=== PATIENT | male | born 1990 ===

== ENCOUNTER 2016-11-16 18:11 | Emergency (ER) | payer BC, MEDICAID, OTHER ==
[2016-11-16 18:11] VITALS: BMI 28.3
[2016-11-16 18:53] VITALS: BP 130/77; PULSE 70; RESP 18; TEMP 98.1; O2SAT 100
[2016-11-16] MEDS ORDERED: cefTRIAXone (Rocephin) 250 mg Inj IM ONE (19:28)
--- NOTE | 2016-11-16 19:30 | ED PDOC ---
HPI: Male Pain Time Seen by Provider: 11/16/16 19:11 Chief Complaint (Nursing): Male Genitourinary Chief Complaint (Provider): Penile Bleeding History Per: Patient History/Exam Limitations: no limitations Onset/Duration Of Symptoms: Days (x2) Current Symptoms Are (Timing): Intermittent Episodes (only when having sex) Quality Of Discomfort: Burning Associated Symptoms: denies: Fever, Diarrhea, Back Pain, Urinary Symptoms (no hematuria), Other (no abdominal pain, testicular pain, scrotal pain, rectal bleeding) Additional Complaint(s): Levi Da Silva is a 26 year old male, with no pertinent past medical history, who presents to the ED on 11/16/16 for the evaluation of penile bleeding that he has experienced x2 days, present upon his engaging in sexual intercourse. Patient further characterizes bleeding a mild, stating that it only beads around the head of his penis. He has also noted some excoriated skin in this area, though he denies fever, abdominal pain, back pain, diarrhea, bleeding per rectum, hematuria, testicular or scrotal pain. Of note, patient is currently sexually active (unprotected) with 1 partner, of whose STD status he is unsure. PMD: unable to remember name Past Medical History Reviewed: Historical Data, Nursing Documentation, Vital Signs Vital Signs: Last Vital Signs Temp 98.1 F 11/16/16 18:51 Pulse 70 11/16/16 18:51 Resp 18 11/16/16 18:51 BP 130/77 11/16/16 18:51 Pulse Ox 100 11/16/16 18:51 - Medical History PMH: Anxiety, Asthma, Depression, Seizures Denies: Diabetes, Hepatitis, HIV, HTN, Chronic Kidney Disease, Sexually Transmitted Disease - Family History Family History: States: Unknown Family Hx - Social History Current smoker - smoking cessation education provided: Yes (Occasionally) Alcohol: Other (yes) Drugs: Other (yes) - Immunization History Hx Tetanus Toxoid Vaccination: Yes Hx Influenza Vaccination: No Hx Pneumococcal Vaccination: No - Home Medications Home Medications: Ambulatory Orders Medication Instructions Recorded Bupropion HCl [Wellbutrin] mg PO 12/28/15 Topiramate [Topamax] mg PO 12/28/15 clonazePAM [clonAZEPAM] mg PO 12/28/15 Cephalexin [cephalexin] 500 mg PO BID #20 cap 05/14/16 - Allergies Allergies/Adverse Reactions: Allergies Allergy/AdvReac Type Severity Reaction Status Date / Time No Known Allergies Allergy Verified 11/30/15 23:07 Review of Systems Constitutional: Negative for: Fever Gastrointestinal: Negative for: Vomiting, Diarrhea, Hematochezia, Rectal Pain Genitourinary Male: Positive for: Other (Penile Bleeding). Negative for: Hematuria, Scrotal Pain Physical Exam - Reviewed Nursing Documentation Reviewed: Yes Vital Signs Reviewed: Yes - Physical Exam Appears: Positive for: Non-toxic, No Acute Distress Cardiovascular/Chest: Positive for: Regular Rate, Rhythm Respiratory: Negative for: Respiratory Distress Gastrointestinal/Abdominal: Positive for: Normal Exam, Soft. Negative for: Tenderness Male Genital Exam: Positive for: normal genitalia, other (Pt refused group therapy counselor for exam. ). Negative for: bleeding, lesions, urethral discharge Neurologic/Psych: Positive for: Alert, Oriented - ECG O2 Sat by Pulse Oximetry: 100 (ra) Pulse Ox Interpretation: Normal Medical Decision Making Medical Decision Makin:11 Initial impression: nonspecific uretritis; most likely STD initial plan: * U Dip * Chlamydia/ GC RNA * Rocephin 250mg IM * Zithromax 1000mg PO * Re-eval Scribe Attestation: Documented by Ana Trevino, acting as a scribe for Robby Hudson MD. Provider Scribe Attestation: All medical record entries made by the Scribe were at my direction and personally dictated by me. I have reviewed the chart and agree that the record accurately reflects my personal performance of the history, physical exam, medical decision making, and the department course for this patient. I have also personally directed, reviewed, and agree with the discharge instructions and disposition. Disposition - Clinical Impression Clinical Impression: Urethritis, STD (male) - Patient ED Disposition Is Patient to be Admitted: No Doctor Will See Patient In The: Office Counseled Patient/Family Regarding: Studies Performed, Diagnosis, Need For Followup - Disposition Referrals: [facility] [Outside] Disposition: Routine/Home Disposition Time: 20:50 Condition: GOOD Additional Instructions: You received treatment for possible STD. You will be called with positive results in 2 days. Follow up with your PCP in 1 week. Instructions: Nonspecific Urethritis in Men (ED), Sexually Transmitted Diseases (ED)
[2016-11-16] MEDS ORDERED: cefTRIAXone (Rocephin) 250 mg Inj ONE (20:29)
[2016-11-16] MEDS ORDERED: Sterile Water 10 ML IV ONE (20:30)
== END 2016-11-16 21:00 | disposition home or self-care (01) ==
LOC: H.ER 18:11
DX: N34.2 Other urethritis (principal); A64 Unspecified sexually transmitted disease; F41.9 Anxiety disorder, unspecified

== ENCOUNTER 2017-05-06 22:24 | Emergency (ER) | payer BC, MEDICAID, OTHER ==
[2017-05-06 22:25] VITALS: BMI 28.3
[2017-05-06 22:33] VITALS: BP 141/72; PULSE 95; RESP 16; TEMP 99; O2SAT 99
--- NOTE | 2017-05-06 22:48 | ED PDOC ---
Upper Extremity Pain/Injury Time Seen by Provider: 05/06/17 22:30 Chief Complaint (Nursing): Abnormal Skin Integrity Chief Complaint (Provider): skin lesions History Per: Patient History/Exam Limitations: no limitations Additional Complaint(s): 26yo M in ED for eval of lesions to right forearm and right dorsum of foot-x 3d without fever, drainage, chills body aches. Past Medical History Reviewed: Historical Data, Nursing Documentation, Vital Signs Vital Signs: Last Vital Signs Temp 99 F 05/06/17 22:29 Pulse 95 H 05/06/17 22:29 Resp 16 05/06/17 22:29 BP 141/72 05/06/17 22:29 Pulse Ox 99 05/06/17 22:29 - Medical History PMH: Anxiety, Asthma, Depression, Seizures Denies: Diabetes, Hepatitis, HIV, HTN, Chronic Kidney Disease, Sexually Transmitted Disease - Family History Family History: States: Unknown Family Hx - Immunization History Hx Tetanus Toxoid Vaccination: Yes Hx Influenza Vaccination: No Hx Pneumococcal Vaccination: No - Home Medications Home Medications: Ambulatory Orders Medication Instructions Recorded Bupropion HCl [Wellbutrin] mg PO 12/28/15 Topiramate [Topamax] mg PO 12/28/15 clonazePAM [clonAZEPAM] mg PO 12/28/15 Cephalexin [cephalexin] 500 mg PO BID #20 cap 05/14/16 Cephalexin [cephalexin] 500 mg PO BID #20 cap 05/06/17 Clindamycin [Cleocin] 300 mg PO TID #30 cap 05/06/17 - Allergies Allergies/Adverse Reactions: Allergies Allergy/AdvReac Type Severity Reaction Status Date / Time No Known Allergies Allergy Verified 05/06/17 22:29 Review of Systems ROS Statement: Except As Marked, All Systems Reviewed And Found Negative Skin: Positive for: Lesions Physical Exam - Reviewed Nursing Documentation Reviewed: Yes Vital Signs Reviewed: Yes - Physical Exam Appears: Positive for: Well, Non-toxic, No Acute Distress Skin: Positive for: Normal Color, Warm, Rash (lesion-right antecubital lesion with surronding erythema without tenderness no swelling to arm. right dorsum of foot: 4th digit with lesion and surronding swelling and reddness with mild tenderness and streaking. ) Cardiovascular/Chest: Positive for: Regular Rate, Rhythm Respiratory: Positive for: CNT, Normal Breath Sounds Neurologic/Psych: Positive for: Alert, Oriented - ECG O2 Sat by Pulse Oximetry: 99 - Progress ED Course And Treament: PT will get IV clindamycin 600mg in ED and cbc/xray. Medical Decision Making Medical Decision Making: xray shows mild soft tissue swelling clindamycin-600mg IV and d/c with clindamycin 300mg TID and keflex BID f/u in 3d with pmd or return to ED if worsen stable VS and well appearing. advised to apply warm compress area. Disposition - Clinical Impression Clinical Impression: Cellulitis of arm, Cellulitis and abscess of foot - Patient ED Disposition Is Patient to be Admitted: No Counseled Patient/Family Regarding: Studies Performed, Diagnosis, Need For Followup, Rx Given - Disposition Referrals: [facility] [Outside] Disposition: Routine/Home Disposition Time: 23:30 Condition: STABLE Prescriptions: Cephalexin [cephalexin] 500 mg PO BID #20 cap Clindamycin [Cleocin] 300 mg PO TID #30 cap Instructions: Cellulitis (ED) Forms: [employer] ([place]ese)
[2017-05-06] MEDS ORDERED: Clindamycin 600 MG in Sodium Chloride 0.9% 100 ML IVPB STA (22:58)
[2017-05-06 23:06] LABS: BASO # 0.1 K/uL (0.0-0.2); BASO % 0.6 % (0.0-2.0); EOS # 0.1 K/uL (0.0-0.7); EOS % 0.9 % (0.0-4.0); LYMPH # 1.9 K/uL (1.0-4.3); LYMPH % 15.9 % (20.0-40.0); MEAN CELL VOLUME 91.6 fl (80.0-94.0); MEAN CORPUSCULAR HGB CONC 32.7 g/dL (33.0-37.0); MEAN PLATELET VOLUME 9.4 fl (7.2-11.7); MONO % 8.8 % (0.0-10.0); NEUT # 8.8 K/uL (1.8-7.0); NEUT % 73.8 % (50.0-75.0); NRBC % 0.2 % (0.0-0.0); RED CELL DISTRIBUTION WIDTH 14.4 % (11.5-14.5); WHITE BLOOD COUNT 11.9 K/uL (4.8-10.8)
--- NOTE | 2017-05-07 19:49 | RAD ---
PROCEDURE: Right Foot Radiographs. HISTORY: foot swelling COMPARISON: No prior study available for comparison FINDINGS: BONES: Normal. No fracture. JOINTS: Minor hallux valgus deformity with prominence of the overlying medial soft tissues. SOFT TISSUES: No evidence of subcutaneous emphysema nor radiopaque foreign bodies OTHER FINDINGS: None. IMPRESSION: No evidence of acute displaced fracture nor dislocation.
== END 2017-05-07 00:10 | disposition home or self-care (01) ==
LOC: H.ER 22:24
DX: L03.119 Cellulitis of unspecified part of limb (principal); L02.612 Cutaneous abscess of left foot

== ENCOUNTER 2017-05-10 11:55 | Emergency (ER) | payer MEDICAID ==
[2017-05-10 12:02] VITALS: BMI 26.6
[2017-05-10 12:21] VITALS: BP 155/85; PULSE 123; RESP 20; O2SAT 98
--- NOTE | 2017-05-10 12:48 | ED PDOC ---
HPI: General Adult Time Seen by Provider: 05/10/17 11:56 Chief Complaint (Nursing): Psychiatric Evaluation History Per: Patient Additional Complaint(s): Pt. brought in by EMS as he was being combative at his father's store. States that he went to his father's store to get his "social" but his father did not like the "words coming out of my mouth" so his father called the police. As per EMS and police pt. became combative when they were called and en route to ED. Pt. offers no complaints at this time but is refusing to answer my questions and continues to yell and threaten digital photographer and ED staff. Past Medical History Reviewed: Historical Data, Nursing Documentation, Vital Signs Vital Signs: Last Vital Signs Temp Pulse 123 H 05/10/17 12:17 Resp 20 05/10/17 12:17 BP 155/85 H 05/10/17 12: Pulse Ox 98 05/10/17 17:13 - Medical History PMH: Anxiety, Asthma, Depression, Seizures Denies: Diabetes, Hepatitis, HIV, HTN, Chronic Kidney Disease, Sexually Transmitted Disease - Family History Family History: States: Unknown Family Hx - Immunization History Hx Tetanus Toxoid Vaccination: Yes Hx Influenza Vaccination: No Hx Pneumococcal Vaccination: No - Home Medications Home Medications: Ambulatory Orders Medication Instructions Recorded Bupropion HCl [Wellbutrin] mg PO 12/28/15 Topiramate [Topamax] mg PO 12/28/15 clonazePAM [clonAZEPAM] mg PO 12/28/15 Cephalexin [cephalexin] 500 mg PO BID #20 cap 05/14/16 Cephalexin [cephalexin] 500 mg PO BID #20 cap 05/06/17 Clindamycin [Cleocin] 300 mg PO TID #30 cap 05/06/17 - Allergies Allergies/Adverse Reactions: Allergies Allergy/AdvReac Type Severity Reaction Status Date / Time No Known Allergies Allergy Verified 05/06/17 22:29 Review of Systems ROS Statement: Except As Marked, All Systems Reviewed And Found Negative Physical Exam - Reviewed Nursing Documentation Reviewed: Yes Vital Signs Reviewed: Yes - Physical Exam Appears: Positive for: Well, Non-toxic, No Acute Distress Head Exam: Positive for: ATRAUMATIC, NORMAL INSPECTION, NORMOCEPHALIC Skin: Positive for: Normal Color, Warm. Negative for: Rash Eye Exam: Positive for: EOMI, Normal appearance, PERRL ENT: Positive for: Normal ENT Inspection Neck: Positive for: Normal, Painless ROM Cardiovascular/Chest: Positive for: Regular Rate, Rhythm Respiratory: Positive for: CNT, Normal Breath Sounds Gastrointestinal/Abdominal: Positive for: Normal Exam, Bowel Sounds, Soft. Negative for: Tenderness Back: Positive for: Normal Inspection Extremity: Positive for: Normal ROM Neurologic/Psych: Positive for: Alert, Oriented, Mood/Affect (agitated). Negative for: Aphasia, Facial Droop - Laboratory Results Result Diagrams: 05/10/17 15:00 05/10/17 15:00 - ECG O2 Sat by Pulse Oximetry: 98 - Progress ED Course And Treament: Pt. placed on restraints, 1:1 observation. Ativan 2mg IM ordered. Crisis evaluation ordered. 1331 Pt. continues to be unruly and to yell. Pt. broke railing on stretcher he was. Refuses to talk to crisis. Haldol 5mg IM ordered. Labs ordered. Pt. placed on monitor. 1555 Sleeping comfortably. lunchroom monitor: SR at 79 bpm without ectopy, Repeat POX: 98% on RA. Pending crisis evaluation. 1630 Pt. alert and awake. Still agitated but was easily consoled. 1805 AOx3. Pt. evaluated by concession worker, who spoke with Dr. Stephens and cleared pt. for discharge. Calm, cooperative. Denies SI/HI, hallucinations. Disposition - Clinical Impression Clinical Impression: Anxiety - Patient ED Disposition Is Patient to be Admitted: No - Disposition Disposition: Routine/Home Disposition Time: 18:06 Condition: IMPROVED Instructions: Anxiety (ED) Forms: [employer] ([place]ots[place]an)
[2017-05-10 15:06] LABS: BASO % 0.6 % (0.0-2.0); EOS % 0.4 % (0.0-4.0); HEMATOCRIT 39.9 % (35.0-51.0); LYMPH % 20.3 % (20.0-40.0); MEAN CELL VOLUME 89.3 fl (80.0-94.0); MEAN CORPUSCULAR HEMOGLOBIN 30.1 pg (27.0-31.0); MEAN CORPUSCULAR HGB CONC 33.7 g/dL (33.0-37.0); MEAN PLATELET VOLUME 9.1 fl (7.2-11.7); MONO # 0.3 K/uL (0.0-0.8); MONO % 5.7 % (0.0-10.0); NEUT # 3.7 K/uL (1.8-7.0); NRBC % 0.2 % (0.0-0.0); RED CELL DISTRIBUTION WIDTH 14.2 % (11.5-14.5)
[2017-05-10 15:10] LABS: URINE BACTERIA RARE (<OCC); URINE BILIRUBIN NEGATIVE (NEGATIVE); URINE BLOOD NEGATIVE (NEGATIVE); URINE COLOR YELLOW (YELLOW); URINE GLUCOSE (UA) NEG (Normal); URINE KETONE NEGATIVE (NEGATIVE); URINE LEUKOCYTE ESTERASE NEG Leu/uL (Negative); URINE PROTEIN NEGATIVE (NEGATIVE); URINE UROBILINOGEN 0.2-1.0 mg/dL (0.2-1.0); WBC URINE < 1 /hpf (0-5)
[2017-05-10 15:33] LABS: ALB/GLOB RATIO 1.4 (1.0-2.1); ALKALINE PHOSPHATASE 84 U/L (38-126); ALT/SGPT 33 U/L (21-72); AST/SGOT 37 U/L (17-59); BILIRUBIN,TOTAL 0.2 mg/dl (0.2-1.3); BLOOD UREA NITROGEN 10 mg/dl (9-20); CALCIUM 8.8 mg/dL (8.4-10.2); CARBON DIOXIDE 24 mmol/L (22-30); CHLORIDE 109 mmol/L (98-107); GFR AFRICAN-AMERICAN > 60; GLUCOSE,RANDOM 94 mg/dL (75-110); SODIUM 148 mmol/l (132-148); TOTAL PROTEIN 7.3 G/DL (6.3-8.2)
[2017-05-10 15:38] LABS: RBC URINE 1 /hpf (0-3)
== END 2017-05-10 18:26 | disposition home or self-care (01) ==
LOC: H.ER 11:55
DX: F41.9 Anxiety disorder, unspecified (principal)
CPT/HCPCS: 80053; 80324; 80345; 80346; 80349; 80353; 80358; 80361; 81003; 83992; 85025; 96372; 99285; J1630; J2060

== ENCOUNTER 2017-05-17 01:35 | Emergency (ER) | payer MEDICAID ==
[2017-05-17 01:35] VITALS: BMI 26.6
[2017-05-17 01:44] VITALS: BP 154/86; PULSE 93; RESP 16; TEMP 98.6; O2SAT 99
--- NOTE | 2017-05-17 02:07 | ED PDOC ---
HPI: Psych/Substance Abuse Time Seen by Provider: 05/17/17 01:48 Chief Complaint (Nursing): Psychiatric Evaluation Chief Complaint (Provider): crisis eval History Per: Patient, EMS Additional Complaint(s): Patient presents to emergency department for crisis evaluation. Patient had argument with his mother and was kicked out of his home. He presented this evening to police station stating that he feels depressed so police called ambulance for patient to be brought here. Patient denies suicidal or homicidal ideation. He is well known to emergency department for frequent visits. Past Medical History Reviewed: Historical Data, Nursing Documentation, Vital Signs Vital Signs: Last Vital Signs Temp 98.6 F 05/17/17 01:40 Pulse 93 H 05/17/17 01:40 Resp 16 05/17/17 01:40 BP 154/86 H 05/17/17 01:40 Pulse Ox 99 05/17/17 01:40 - Medical History PMH: Anxiety, Asthma, Depression, Post Traumatic Stress Disorder, Seizures - Family History Family History: States: No Known Family Hx - Living Arrangements Living Arrangements: With Family - Social History Current smoker - smoking cessation education provided: No Drugs: Other - Home Medications Home Medications: Ambulatory Orders Medication Instructions Recorded Bupropion HCl [Wellbutrin] mg PO 12/28/15 Topiramate [Topamax] mg PO 12/28/15 clonazePAM [clonAZEPAM] mg PO 12/28/15 Cephalexin [cephalexin] 500 mg PO BID #20 cap 05/14/16 Cephalexin [cephalexin] 500 mg PO BID #20 cap 05/06/17 Clindamycin [Cleocin] 300 mg PO TID #30 cap 05/06/17 - Allergies Allergies/Adverse Reactions: Allergies Allergy/AdvReac Type Severity Reaction Status Date / Time No Known Allergies Allergy Verified 05/06/17 22:29 Review of Systems ROS Statement: Except As Marked, All Systems Reviewed And Found Negative Psych: Positive for: Depression. Negative for: Suicidal ideation Physical Exam - Reviewed Nursing Documentation Reviewed: Yes Vital Signs Reviewed: Yes - Physical Exam Appears: Positive for: Well, Non-toxic, No Acute Distress Head Exam: Positive for: ATRAUMATIC, NORMAL INSPECTION Skin: Positive for: Normal Color Eye Exam: Positive for: Normal appearance Cardiovascular/Chest: Positive for: Regular Rate, Rhythm Respiratory: Positive for: Normal Breath Sounds Neurologic/Psych: Positive for: Alert, Oriented - ECG O2 Sat by Pulse Oximetry: 99 Pulse Ox Interpretation: Normal Medical Decision Making Medical Decision Makin26 year old depressed male here for crisis eval Plan: Crisis consult As per crisis counselor and psychiatrist aeronautical project engineer, Dr. Stephens, patient does not meet criteria for admission and is stable for discharge. Disposition - Clinical Impression Clinical Impression: ADHD - Patient ED Disposition Is Patient to be Admitted: No Counseled Patient/Family Regarding: Need For Followup - Disposition Referrals: [facility] [Outside] Disposition: Routine/Home Disposition Time: 02:07 Condition: STABLE Additional Instructions: Follow up as directed by crisis counselor. Forms: [employer] (Congolese)
== END 2017-05-17 06:19 | disposition home or self-care (01) ==
LOC: H.ER 01:35
DX: F32.9 Major depressive disorder, single episode, unspecified (principal); F90.9 Attention-deficit hyperactivity disorder, unspecified type; Z86.59 Personal history of other mental and behavioral disorders; J45.909 Unspecified asthma, uncomplicated

== ENCOUNTER 2017-05-29 02:24 | Emergency (ER) | payer MEDICAID ==
[2017-05-29 02:51] VITALS: BMI 25.8
--- NOTE | 2017-05-29 02:53 | ED PDOC ---
HPI: General Adult Time Seen by Provider: 05/29/17 02:37 History Per: Patient, EMS Additional Complaint(s): Pt. brought in by EMS as he got into a verbal altercation with a [employer] Employee today. Police was called and pt. continued to be verbally abusive. Upon interviewing pt., denied this and states he called ambulance because he's been feeling anxious and he wants a refill of his adderrall. Denies SI/HI, hallucinations, injury. Past Medical History Reviewed: Historical Data, Nursing Documentation, Vital Signs Vital Signs: Last Vital Signs Temp 97.9 F 05/29/17 02:40 Pulse 79 05/29/17 02:40 Resp 16 05/29/17 02:40 BP 132/73 05/29/17 02:40 Pulse Ox 100 05/29/17 02:40 - Medical History PMH: Anxiety, Asthma, Depression, Post Traumatic Stress Disorder, Seizures Denies: Diabetes, Hepatitis, HIV, HTN, Chronic Kidney Disease, Sexually Transmitted Disease - Family History Family History: States: No Known Family Hx - Immunization History Hx Tetanus Toxoid Vaccination: Yes Hx Influenza Vaccination: No Hx Pneumococcal Vaccination: No - Home Medications Home Medications: Ambulatory Orders Medication Instructions Recorded Bupropion HCl [Wellbutrin] mg PO 12/28/15 Topiramate [Topamax] mg PO 12/28/15 clonazePAM [clonAZEPAM] mg PO 12/28/15 Cephalexin [cephalexin] 500 mg PO BID #20 cap 05/14/16 Cephalexin [cephalexin] 500 mg PO BID #20 cap 05/06/17 Clindamycin [Cleocin] 300 mg PO TID #30 cap 05/06/17 - Allergies Allergies/Adverse Reactions: Allergies Allergy/AdvReac Type Severity Reaction Status Date / Time No Known Allergies Allergy Verified 05/29/17 02:51 Review of Systems ROS Statement: Except As Marked, All Systems Reviewed And Found Negative Psych: Positive for: Anxiety Physical Exam - Reviewed Nursing Documentation Reviewed: Yes Vital Signs Reviewed: Yes - Physical Exam Appears: Positive for: Well, Non-toxic, No Acute Distress Head Exam: Positive for: ATRAUMATIC, NORMAL INSPECTION, NORMOCEPHALIC Skin: Positive for: Normal Color, Warm. Negative for: Rash Eye Exam: Positive for: EOMI, Normal appearance, PERRL ENT: Positive for: Normal ENT Inspection Neck: Positive for: Normal, Painless ROM Cardiovascular/Chest: Positive for: Regular Rate, Rhythm Respiratory: Positive for: CNT, Normal Breath Sounds Gastrointestinal/Abdominal: Positive for: Normal Exam, Soft. Negative for: Tenderness Back: Positive for: Normal Inspection Extremity: Positive for: Normal ROM Neurologic/Psych: Positive for: Alert, Oriented, Mood/Affect (calm, cooperative) . Negative for: Aphasia, Facial Droop - Laboratory Results Result Diagrams: 05/29/17 05:16 05/29/17 05:16 - Progress ED Course And Treament: Crisis evaluation ordered. 0350 Pt. evaluated by crisis who requests lab work to be done as pt. is not responding to her. Disposition - Clinical Impression Clinical Impression: Alcohol intoxication, Cannabis abuse - Patient ED Disposition Is Patient to be Admitted: No - Disposition Disposition: Routine/Home Disposition Time: 05:47 Condition: STABLE Instructions: Alcohol Intoxication (ED), Cannabis Abuse (ED) Print Language: CITIZEN OF [place]
[2017-05-29 02:54] VITALS: BP 132/73; PULSE 79; RESP 16; TEMP 97.9; O2SAT 100
[2017-05-29 05:25] LABS: BASO % 0.6 % (0.0-2.0); EOS # 0.4 K/uL (0.0-0.7); EOS % 6.8 % (0.0-4.0); HEMATOCRIT 39.9 % (35.0-51.0); LYMPH # 1.6 K/uL (1.0-4.3); LYMPH % 29.7 % (20.0-40.0); MEAN CORPUSCULAR HEMOGLOBIN 29.6 pg (27.0-31.0); MEAN CORPUSCULAR HGB CONC 32.6 g/dL (33.0-37.0); MEAN PLATELET VOLUME 9.6 fl (7.2-11.7); MONO # 0.6 K/uL (0.0-0.8); MONO % 10.6 % (0.0-10.0); NEUT # 2.8 K/uL (1.8-7.0); NEUT % 52.3 % (50.0-75.0); NRBC % 0.1 % (0.0-0.0); RED CELL DISTRIBUTION WIDTH 14.4 % (11.5-14.5); WHITE BLOOD COUNT 5.4 K/uL (4.8-10.8)
[2017-05-29 05:27] LABS: RBC URINE 1 /hpf (0-3); URINE BILIRUBIN NEGATIVE (NEGATIVE); URINE BLOOD NEGATIVE (NEGATIVE); URINE COLOR YELLOW (YELLOW); URINE GLUCOSE (UA) NEG (Normal); URINE KETONE NEGATIVE (NEGATIVE); URINE LEUKOCYTE ESTERASE NEG Leu/uL (Negative); URINE PROTEIN NEGATIVE (NEGATIVE); URINE UROBILINOGEN 0.2-1.0 mg/dL (0.2-1.0); WBC URINE 1 /hpf (0-5)
[2017-05-29 05:42] LABS: ALB/GLOB RATIO 1.5 (1.0-2.1); ALCOHOL SERUM 110 mg/dl (0-10); ALKALINE PHOSPHATASE 71 U/L (38-126); ALT/SGPT 32 U/L (21-72); AST/SGOT 37 U/L (17-59); BILIRUBIN,TOTAL 0.2 mg/dl (0.2-1.3); BLOOD UREA NITROGEN 13 mg/dl (9-20); CALCIUM 8.1 mg/dL (8.4-10.2); CARBON DIOXIDE 21 mmol/L (22-30); CHLORIDE 107 mmol/L (98-107); GFR AFRICAN-AMERICAN > 60; GLUCOSE,RANDOM 95 mg/dL (75-110); POTASSIUM 3.7 MMOL/L (3.6-5.0); SODIUM 143 mmol/l (132-148); TOTAL PROTEIN 7.1 G/DL (6.3-8.2)
== END 2017-05-29 06:00 | disposition home or self-care (01) ==
LOC: H.ER 02:24
DX: F10.129 Alcohol abuse with intoxication, unspecified (principal); F12.10 Cannabis abuse, uncomplicated; J45.909 Unspecified asthma, uncomplicated; Z86.59 Personal history of other mental and behavioral disorders; F43.10 Post-traumatic stress disorder, unspecified

== ENCOUNTER 2017-05-31 15:03 | Emergency (ER) | payer MEDICAID ==
[2017-05-31 15:04] VITALS: BMI 25.8
[2017-05-31 15:06] VITALS: BP 150/84; PULSE 83; RESP 16; TEMP 98.2; O2SAT 100
--- NOTE | 2017-05-31 15:21 | ED PDOC ---
HPI: Psych/Substance Abuse Time Seen by Provider: 05/31/17 15:10 Chief Complaint (Nursing): Alcohol Ingestion Chief Complaint (Provider): EtOH ingestion History Per: EMS History/Exam Limitations: no limitations Onset/Duration Of Symptoms: Mins Suicide/Self Injury Attempted (Context): None Additional Complaint(s): 27yo male, brought to the ED by EMS for evaluation after receiving a call from bystanders stating patient was sleeping outside. Patient admits to alcohol use and states his last drink was earlier this morning. He denies any suicidal or homicidal ideation. Patient offers no medical complaints. Past Medical History Reviewed: Historical Data, Nursing Documentation, Vital Signs Vital Signs: Last Vital Signs Temp 98.2 F 05/31/17 15:04 Pulse 83 05/31/17 15:04 Resp 16 05/31/17 15:04 BP 150/84 05/31/17 15:04 Pulse Ox 100 05/31/17 15:04 - Medical History PMH: Anxiety, Asthma, Depression, Post Traumatic Stress Disorder Denies: Diabetes, Hepatitis, HIV, HTN, Chronic Kidney Disease, Seizures, Sexually Transmitted Disease - Surgical History Surgical History: No Surg Hx - Family History Family History: States: No Known Family Hx - Immunization History Hx Tetanus Toxoid Vaccination: Yes Hx Influenza Vaccination: No Hx Pneumococcal Vaccination: No - Home Medications Home Medications: Ambulatory Orders Medication Instructions Recorded Bupropion HCl [Wellbutrin] mg PO 12/28/15 Topiramate [Topamax] mg PO 12/28/15 clonazePAM [clonAZEPAM] mg PO 12/28/15 Cephalexin [cephalexin] 500 mg PO BID #20 cap 05/14/16 Cephalexin [cephalexin] 500 mg PO BID #20 cap 05/06/17 Clindamycin [Cleocin] 300 mg PO TID #30 cap 05/06/17 - Allergies Allergies/Adverse Reactions: Allergies Allergy/AdvReac Type Severity Reaction Status Date / Time No Known Allergies Allergy Verified 05/31/17 15:04 Review of Systems ROS Statement: Except As Marked, All Systems Reviewed And Found Negative Psych: Positive for: Other (alcohol use). Negative for: Suicidal ideation Physical Exam - Reviewed Nursing Documentation Reviewed: Yes Vital Signs Reviewed: Yes - Physical Exam Appears: Positive for: Non-toxic, No Acute Distress Head Exam: Positive for: ATRAUMATIC, NORMAL INSPECTION, NORMOCEPHALIC Skin: Positive for: Normal Color Eye Exam: Positive for: Normal appearance Neck: Positive for: Supple Respiratory: Negative for: Respiratory Distress Extremity: Positive for: Normal ROM Neurologic/Psych: Positive for: Alert, Oriented, Gait (steady). Negative for: Motor/Sensory Deficits - ECG O2 Sat by Pulse Oximetry: 100 (RA) Pulse Ox Interpretation: Normal Medical Decision Making Medical Decision Making: Time: 1509 Impression: EtOH use Plan: -- Patient is awake, alert and oriented with steady gait. Calm and cooperative in the ED. Patient stable for discharge home. Scribe Attestation: Documented by Katie Vargas, acting as a scribe for Evonne Galaviz PA-C Provider Scribe Attestation: All medical record entries made by the Scribe were at my direction and personally dictated by me. I have reviewed the chart and agree that the record accurately reflects my personal performance of the history, physical exam, medical decision making, and the department course for this patient. I have also personally directed, reviewed, and agree with the discharge instructions and disposition. Disposition - Clinical Impression Clinical Impression: Alcohol use - Disposition Disposition: Routine/Home Disposition Time: 15:32 Condition: GOOD Instructions: Abuse of Alcohol (ED) Forms: [employer] ([place]ese)
--- NOTE | 2017-05-31 15:28 | ED PDOC ---
HPI: Psych/Substance Abuse Time Seen by Provider: 05/31/17 15:10 Chief Complaint (Nursing): Alcohol Ingestion Chief Complaint (Provider): Denies complaints History Per: Patient History/Exam Limitations: no limitations Onset/Duration Of Symptoms: Hrs Current Symptoms Are (Timing): Better Past Medical History Vital Signs: Last Vital Signs Temp 98.2 F 05/31/17 15:04 Pulse 83 05/31/17 15:04 Resp 16 05/31/17 15:04 BP 150/84 05/31/17 15:04 Pulse Ox 100 05/31/17 15:04 - Medical History PMH: Anxiety, Asthma, Depression, Post Traumatic Stress Disorder Denies: Diabetes, Hepatitis, HIV, HTN, Chronic Kidney Disease, Seizures, Sexually Transmitted Disease - Immunization History Hx Tetanus Toxoid Vaccination: Yes Hx Influenza Vaccination: No Hx Pneumococcal Vaccination: No - Home Medications Home Medications: Ambulatory Orders Medication Instructions Recorded Bupropion HCl [Wellbutrin] mg PO 12/28/15 Topiramate [Topamax] mg PO 12/28/15 clonazePAM [clonAZEPAM] mg PO 12/28/15 Cephalexin [cephalexin] 500 mg PO BID #20 cap 05/14/16 Cephalexin [cephalexin] 500 mg PO BID #20 cap 05/06/17 Clindamycin [Cleocin] 300 mg PO TID #30 cap 05/06/17 - Allergies Allergies/Adverse Reactions: Allergies Allergy/AdvReac Type Severity Reaction Status Date / Time No Known Allergies Allergy Verified 05/31/17 15:04 - ECG O2 Sat by Pulse Oximetry: 100 Disposition - Clinical Impression Clinical Impression: Alcohol use - Patient ED Disposition Is Patient to be Admitted: No Counseled Patient/Family Regarding: Diagnosis, Need For Followup - Disposition Disposition: Routine/Home Disposition Time: 15:15 Condition: GOOD Instructions: Abuse of Alcohol (ED)
== END 2017-05-31 15:45 | disposition home or self-care (01) ==
LOC: H.ER 15:03
DX: F10.129 Alcohol abuse with intoxication, unspecified (principal); F32.9 Major depressive disorder, single episode, unspecified; F43.10 Post-traumatic stress disorder, unspecified; J45.909 Unspecified asthma, uncomplicated

== ENCOUNTER 2017-06-01 06:06 | Emergency (ER) | payer MEDICAID ==
[2017-06-01 06:06] VITALS: BMI 25.8
[2017-06-01 06:13] VITALS: BP 150/71; PULSE 102; RESP 16; TEMP 97.3; O2SAT 98
--- NOTE | 2017-06-01 06:27 | ED PDOC ---
HPI: Psych/Substance Abuse Time Seen by Provider: 06/01/17 06:11 Chief Complaint (Nursing): Psychiatric Evaluation Chief Complaint (Provider): Psychiatric Evaluation History Per: Patient History/Exam Limitations: no limitations Current Symptoms Are (Timing): Still Present Suicide/Self Injury Attempted (Context): None Associated Symptoms: Anxiety, Depression Additional Complaint(s): 27 year old male presents to ED with complaints of feeling depressed and has a past medical history of ADHD, EtOH addiction, and depression. Patient notes that he wants medicine to relax. Patient has missed his outpatient mental health appointment. Admits to drinking tonight and smoking weed. (-) suicidal and homicidal ideation. PCP: CHARLIE Past Medical History Reviewed: Historical Data, Nursing Documentation, Vital Signs Vital Signs: Last Vital Signs Temp 97.3 F L 06/01/17 06:12 Pulse 102 H 06/01/17 06:12 Resp 16 06/01/17 06:12 BP 150/71 06/01/17 06:12 Pulse Ox 98 06/01/17 06:12 - Medical History PMH: Anxiety, Asthma, Depression, Post Traumatic Stress Disorder Denies: Diabetes, Hepatitis, HIV, HTN, Chronic Kidney Disease, Seizures, Sexually Transmitted Disease - Surgical History Surgical History: No Surg Hx - Family History Family History: States: No Known Family Hx - Social History Current smoker - smoking cessation education provided: Yes Alcohol: > 2 Drinks/Day Drugs: Cannabis - Immunization History Hx Tetanus Toxoid Vaccination: Yes Hx Influenza Vaccination: No Hx Pneumococcal Vaccination: No - Home Medications Home Medications: Ambulatory Orders Medication Instructions Recorded Bupropion HCl [Wellbutrin] mg PO 12/28/15 Topiramate [Topamax] mg PO 12/28/15 clonazePAM [clonAZEPAM] mg PO 12/28/15 Cephalexin [cephalexin] 500 mg PO BID #20 cap 05/14/16 Cephalexin [cephalexin] 500 mg PO BID #20 cap 05/06/17 Clindamycin [Cleocin] 300 mg PO TID #30 cap 05/06/17 Amoxicillin/Clavulanate [Augmentin 1 tab PO BID #14 tab 06/01/17 875 MG-125 MG] - Allergies Allergies/Adverse Reactions: Allergies Allergy/AdvReac Type Severity Reaction Status Date / Time No Known Allergies Allergy Verified 06/01/17 16:57 Review of Systems ROS Statement: Except As Marked, All Systems Reviewed And Found Negative Psych: Positive for: Anxiety. Negative for: Suicidal ideation, Other ((-) Homicidal ideation) Physical Exam - Reviewed Nursing Documentation Reviewed: Yes Vital Signs Reviewed: Yes - Physical Exam Appears: Positive for: Non-toxic, No Acute Distress Head Exam: Positive for: ATRAUMATIC Skin: Positive for: Normal Color Neck: Positive for: Normal Cardiovascular/Chest: Positive for: Regular Rate, Rhythm, Tachycardia Respiratory: Negative for: Respiratory Distress Gastrointestinal/Abdominal: Positive for: Normal Exam, Soft. Negative for: Tenderness Extremity: Positive for: Normal ROM Neurologic/Psych: Positive for: Alert, Oriented. Negative for: Motor/Sensory Deficits - ECG O2 Sat by Pulse Oximetry: 98 (RA) Pulse Ox Interpretation: Normal Medical Decision Making Medical Decision Makin Initial impression: ADHD Initial plan: * crisis eval 0633 Patient was evaluated by crisis and found stable for discharge home with outpatient follow up for prescriptions as per Dr. Stephens. Scribe Attestation: Documented by Alisha Pacheco acting as a scribe for Peter Phipps MD. Scribe Attestation: All medical record entries made by the Scribe were at my direction and personally dictated by me. I have reviewed the chart and agree that the record accurately reflects my personal performance of the history, physical exam, medical decision making, and the department course for this patient. I have also personally directed, reviewed, and agree with the discharge instructions and disposition. Disposition - Clinical Impression Clinical Impression: Adult ADHD - Patient ED Disposition Is Patient to be Admitted: No Counseled Patient/Family Regarding: Studies Performed, Diagnosis, Need For Followup - Disposition Referrals: [facility] [Outside] [facility]] [facility] [Outside] Disposition: Routine/Home Disposition Time: 06:15 Condition: IMPROVED Additional Instructions: follow up with your mental health appointment return to the ED with any worsening or concerning symptoms Instructions: ADHD in Adults (ED) Forms: [employer] ([employer])
== END 2017-06-01 07:01 | disposition home or self-care (01) ==
LOC: H.ER 06:06
DX: F90.9 Attention-deficit hyperactivity disorder, unspecified type (principal); F17.200 Nicotine dependence, unspecified, uncomplicated; Z86.59 Personal history of other mental and behavioral disorders; F43.10 Post-traumatic stress disorder, unspecified; J45.909 Unspecified asthma, uncomplicated

== ENCOUNTER 2017-06-01 16:56 | Emergency (ER) | payer MEDICAID ==
[2017-06-01 16:56] VITALS: BMI 25.8
[2017-06-01 17:01] VITALS: BP 138/88; PULSE 102; RESP 18; TEMP 97.7; O2SAT 98
--- NOTE | 2017-06-01 18:56 | ED PDOC ---
HPI: Psych/Substance Abuse Time Seen by Provider: 06/01/17 17:10 Chief Complaint (Nursing): Psychiatric Evaluation Chief Complaint (Provider): wants adderall and has leg swelling Additional Complaint(s): Pt reports that he needs a refill for his adderall. He says that he has gotten refills in the ER in past and that he missed appointment for mental health. He hasn't been to any outpatient therapy in a few months because he has been "[facility] and out of [facility]". Pt was seen in the ER yesterday late night and discharged very early in the morning after evaluation. No meds given at that time. Also reports LEFT lower leg swelling and redness for 3 days. Started on a day he wore "[employer]" boots and it was raining, so there was some irritation of the high cuff on his leg. He has not taken anything for the pain or swelling. Denies fever Past Medical History Reviewed: Historical Data, Nursing Documentation, Vital Signs Vital Signs: Last Vital Signs Temp 97.7 F 06/01/17 16:58 Pulse 102 H 06/01/17 16:58 Resp 18 06/01/17 16:58 BP 138/88 06/01/17 16:58 Pulse Ox 98 06/01/17 16:58 - Medical History PMH: Anxiety, Asthma, Depression, Post Traumatic Stress Disorder Denies: Diabetes, Hepatitis, HIV, HTN, Chronic Kidney Disease, Seizures, Sexually Transmitted Disease - Family History Family History: States: Unknown Family Hx - Social History Current smoker - smoking cessation education provided: Yes Alcohol: Social Drugs: Methamphetamine - Immunization History Hx Tetanus Toxoid Vaccination: Yes Hx Influenza Vaccination: No Hx Pneumococcal Vaccination: No - Home Medications Home Medications: Ambulatory Orders Medication Instructions Recorded Bupropion HCl [Wellbutrin] mg PO 12/28/15 Topiramate [Topamax] mg PO 12/28/15 clonazePAM [clonAZEPAM] mg PO 12/28/15 Cephalexin [cephalexin] 500 mg PO BID #20 cap 05/14/16 Cephalexin [cephalexin] 500 mg PO BID #20 cap 05/06/17 Clindamycin [Cleocin] 300 mg PO TID #30 cap 05/06/17 Amoxicillin/Clavulanate [Augmentin 1 tab PO BID #14 tab 06/01/17 875 MG-125 MG] - Allergies Allergies/Adverse Reactions: Allergies Allergy/AdvReac Type Severity Reaction Status Date / Time No Known Allergies Allergy Verified 06/01/17 16:57 Review of Systems ROS Statement: Except As Marked, All Systems Reviewed And Found Negative (and as per HPI) Musculoskeletal: Positive for: Leg Pain Skin: Positive for: Lesions Psych: Negative for: Suicidal ideation Physical Exam - Reviewed Nursing Documentation Reviewed: Yes Vital Signs Reviewed: Yes - Physical Exam Appears: Positive for: Non-toxic, No Acute Distress Head Exam: Positive for: ATRAUMATIC, NORMOCEPHALIC Skin: Positive for: Warm, Dry Eye Exam: Positive for: EOMI, PERRL ENT: Negative for: Pharyngeal Erythema, Tonsillar Exudate Neck: Positive for: Painless ROM, Supple Cardiovascular/Chest: Positive for: Regular Rate, Rhythm, Chest Non Tender. Negative for: Murmur Respiratory: Positive for: Normal Breath Sounds. Negative for: Wheezing Gastrointestinal/Abdominal: Positive for: Soft. Negative for: Tenderness Back: Positive for: Normal Inspection. Negative for: Muscle Spasm Extremity: Positive for: Normal ROM, Swelling (warm blanching erythematous area lower anterior tibia area with hazy border with subtle edema and no fluctuance) Lymphatic: Negative for: Adenopathy Neurologic/Psych: Positive for: Alert. Negative for: Motor/Sensory Deficits - ECG O2 Sat by Pulse Oximetry: 98 Pulse Ox Interpretation: Normal Disposition - Clinical Impression Clinical Impression: ADHD (attention deficit hyperactivity disorder), Cellulitis, leg - Disposition Referrals: [facility] [Outside] (Follow up at Clinic in a week for reevaluation of your leg) Disposition: Routine/Home Disposition Time: 18:54 Condition: GOOD Additional Instructions: Follow up TOMORROW AT [facility] as instructed by hop worker. Prescriptions: Amoxicillin/Clavulanate [Augmentin 875 MG-125 MG] 1 tab PO BID #14 tab Instructions: Cellulitis (ED), ADHD in Adults (ED)
== END 2017-06-01 19:30 | disposition home or self-care (01) ==
LOC: H.ER 16:56
DX: F90.9 Attention-deficit hyperactivity disorder, unspecified type (principal); L03.116 Cellulitis of left lower limb; F17.210 Nicotine dependence, cigarettes, uncomplicated; Z86.59 Personal history of other mental and behavioral disorders

== ENCOUNTER 2017-06-03 22:36 | Emergency (ER) | payer MEDICAID ==
[2017-06-03 22:37] VITALS: BMI 25.8
[2017-06-03 22:51] VITALS: BP 123/76; PULSE 78; RESP 18; TEMP 97.8; O2SAT 99
--- NOTE | 2017-06-03 22:59 | ED PDOC ---
HPI: Psych/Substance Abuse Time Seen by Provider: 06/03/17 22:48 Chief Complaint (Nursing): Alcohol Ingestion Chief Complaint (Provider): alcohol intoxication Additional Complaint(s): Pt brought to ER for public intoxication. Pt admits to drinking alcohol. Denies drugs (today.) Denies suidical or homicidal ideations or hallucinations. Continues to report LEFT lower leg swelling ongoing for about a week. Has been taking antibiotics for it. Past Medical History Reviewed: Historical Data, Nursing Documentation, Vital Signs Vital Signs: Last Vital Signs Temp 97.8 F 06/03/17 22:49 Pulse 78 06/03/17 22:49 Resp 18 06/03/17 22:49 BP 123/76 06/03/17 22:49 Pulse Ox 99 06/03/17 22:49 - Medical History PMH: Anxiety, Asthma, Depression, Post Traumatic Stress Disorder Denies: Diabetes, Hepatitis, HIV, HTN, Chronic Kidney Disease, Seizures, Sexually Transmitted Disease - Family History Family History: States: Unknown Family Hx - Social History Current smoker - smoking cessation education provided: Yes Alcohol: < 2 Drinks/Day - Immunization History Hx Tetanus Toxoid Vaccination: Yes Hx Influenza Vaccination: No Hx Pneumococcal Vaccination: No - Home Medications Home Medications: Ambulatory Orders Medication Instructions Recorded Bupropion HCl [Wellbutrin] mg PO 12/28/15 Topiramate [Topamax] mg PO 12/28/15 clonazePAM [clonAZEPAM] mg PO 12/28/15 Cephalexin [cephalexin] 500 mg PO BID #20 cap 05/14/16 Cephalexin [cephalexin] 500 mg PO BID #20 cap 05/06/17 Clindamycin [Cleocin] 300 mg PO TID #30 cap 05/06/17 Amoxicillin/Clavulanate [Augmentin 1 tab PO BID #14 tab 06/01/17 875 MG-125 MG] - Allergies Allergies/Adverse Reactions: Allergies Allergy/AdvReac Type Severity Reaction Status Date / Time No Known Allergies Allergy Verified 06/01/17 16:57 Review of Systems ROS Statement: Except As Marked, All Systems Reviewed And Found Negative (and as per HPI) Skin: Positive for: Lesions Neurological: Negative for: Weakness, Numbness Psych: Negative for: Psychosis, Suicidal ideation Physical Exam - Reviewed Nursing Documentation Reviewed: Yes Vital Signs Reviewed: Yes - Physical Exam Appears: Positive for: Well, No Acute Distress Head Exam: Positive for: ATRAUMATIC, NORMOCEPHALIC Skin: Positive for: Warm, Dry Eye Exam: Positive for: EOMI, PERRL ENT: Positive for: Normal ENT Inspection Neck: Positive for: Painless ROM, Supple Cardiovascular/Chest: Positive for: Regular Rate, Rhythm. Negative for: Edema Respiratory: Negative for: Accessory Muscle Use, Respiratory Distress Back: Positive for: Normal Inspection. Negative for: Decreased ROM Extremity: Positive for: Normal ROM, Other (LEFT lower anterior tibia with subtle edema and erythema). Negative for: Deformity Neurologic/Psych: Positive for: Alert, motion picture projectionist II-XII (intact), Oriented (x3), Gait (steady). Negative for: Motor/Sensory Deficits - ECG O2 Sat by Pulse Oximetry: 99 Disposition - Clinical Impression Clinical Impression: Alcohol intoxication - Disposition Referrals: [facility] [Outside] Disposition: Routine/Home Disposition Time: 22:53 Condition: STABLE Instructions: Alcohol Intoxication (ED)
== END 2017-06-03 23:00 | disposition home or self-care (01) ==
LOC: H.ER 22:36
DX: F10.129 Alcohol abuse with intoxication, unspecified (principal); F32.9 Major depressive disorder, single episode, unspecified; F43.10 Post-traumatic stress disorder, unspecified; J45.909 Unspecified asthma, uncomplicated

== ENCOUNTER 2017-06-14 03:13 | Emergency (ER) | payer BC, MEDICAID, OTHER ==
[2017-06-14 03:14] VITALS: BMI 25.8
[2017-06-14 03:24] VITALS: BP 141/95; PULSE 95; RESP 18; TEMP 97.3; O2SAT 95
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
== END 2017-06-14 03:45 | disposition home or self-care (01) ==
LOC: H.ER 03:13
DX: F41.9 Anxiety disorder, unspecified (principal); J45.909 Unspecified asthma, uncomplicated; Z00.8 Encounter for other general examination; F43.10 Post-traumatic stress disorder, unspecified

== ENCOUNTER 2017-06-27 18:18 | Emergency (ER) | payer MEDICAID ==
[2017-06-27 18:18] VITALS: BMI 25.8
[2017-06-27 18:22] VITALS: BP 140/84; PULSE 101; RESP 16; TEMP 99.6; O2SAT 100
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
--- NOTE | 2017-06-27 19:01 | ED PDOC ---
- Laboratory Results Result Diagrams: 06/27/17 19:16 06/27/17 19:16 - ECG O2 Sat by Pulse Oximetry: 100 (RA) Pulse Ox Interpretation: Normal Medical Decision Making Medical Decision Making: Patient signed out to me from Dr. Abreu at 1900 pending crisis evaluation. 1939 Labs reviewed show no clinically significant abnormalities. Patient is well known to provider and is at his baseline. Alcohol level at 86 Patient has been evaluated by crisis, is medically stable and will be discharged home. Scribe Attestation Documented by Marge Staples acting as a scribe for Theron Lindo MD. Provider Attestation All medical record entries made by the Scribe were at my direction and personally dictated by me. I have reviewed the chart and agree that the record accurately reflects my personal performance of the history, physical exam, medical decision making, and the department course for this patient. I have also personally directed, reviewed, and agree with the discharge instructions and disposition. Disposition Counseled Patient/Family Regarding: Studies Performed, Diagnosis - Clinical Impression Clinical Impression: Alcohol use - POA Present On Arrival: None - Disposition Disposition: Routine/Home Disposition Time: 19:40 Condition: STABLE Instructions: Alcohol Use Disorder (ED) Forms: [employer] ([employer])
[2017-06-27 19:23] LABS: BASO % 0.4 % (0.0-2.0); EOS # 0.1 K/uL (0.0-0.7); EOS % 1.1 % (0.0-4.0); LYMPH # 1.2 K/uL (1.0-4.3); LYMPH % 21.3 % (20.0-40.0); MEAN CELL VOLUME 90.9 fl (80.0-94.0); MEAN CORPUSCULAR HEMOGLOBIN 30.8 pg (27.0-31.0); MEAN CORPUSCULAR HGB CONC 33.9 g/dL (33.0-37.0); MEAN PLATELET VOLUME 9.7 fl (7.2-11.7); MONO # 0.8 K/uL (0.0-0.8); NEUT # 3.7 K/uL (1.8-7.0); NEUT % 64.2 % (50.0-75.0); NRBC % 0.1 % (0.0-0.0); RED CELL DISTRIBUTION WIDTH 15.3 % (11.5-14.5); WHITE BLOOD COUNT 5.8 K/uL (4.8-10.8)
[2017-06-27 19:36] LABS: ALB/GLOB RATIO 1.5 (1.0-2.1); ALCOHOL SERUM 85 mg/dl (0-10); ALKALINE PHOSPHATASE 88 U/L (38-126); ALT/SGPT 49 U/L (21-72); AST/SGOT 42 U/L (17-59); BILIRUBIN,TOTAL 0.6 mg/dl (0.2-1.3); BLOOD UREA NITROGEN 9 mg/dl (9-20); CALCIUM 9.3 mg/dL (8.4-10.2); CARBON DIOXIDE 26 mmol/L (22-30); CHLORIDE 103 mmol/L (98-107); GFR AFRICAN-AMERICAN > 60; GLUCOSE,RANDOM 129 mg/dL (75-110); POTASSIUM 4.3 MMOL/L (3.6-5.0); SODIUM 141 mmol/l (132-148); TOTAL PROTEIN 8.1 G/DL (6.3-8.2)
--- NOTE | 2017-06-28 07:05 | CARD ---
APPROVED REPORT EKG Measurement Heart [id number] <Conclusion> Normal sinus rhythm Normal ECG
== END 2017-06-27 19:45 | disposition home or self-care (01) ==
LOC: H.ER 18:18
DX: F10.10 Alcohol abuse, uncomplicated (principal); F41.9 Anxiety disorder, unspecified; F32.9 Major depressive disorder, single episode, unspecified; F43.10 Post-traumatic stress disorder, unspecified; J45.909 Unspecified asthma, uncomplicated

== ENCOUNTER 2017-06-27 22:54 | Emergency (ER) | payer MEDICAID ==
[2017-06-27 22:57] VITALS: TEMP 98; BMI 25.0
--- NOTE | 2017-06-27 23:26 | ED PDOC ---
HPI: General Adult Time Seen by Provider: 06/27/17 23:03 Chief Complaint (Nursing): Medical Clearance History Per: Patient, EMS Additional Complaint(s): 27 year old male presents to ED, BIB Police in order to undergo medical clearance for incarceration. Pt reports that he sustained abrasions to his face from police, additionally he complaints of anxiety and auditory hallucinations. Pt has a past medical history of substance abuse and anxiety. Pt admits to drinking and smoking weed today. Pt seen and evaluated in the ED earlier today for anxiety and auditory allucinations. ETOH was 85 at that time. Patient is well known to ED and has a history of drug-seeking behavior. Patient requests Ritalin prescription at this time as well. (-) homicidal/suicidal ideation. PCP: None Past Medical History Reviewed: Historical Data, Nursing Documentation, Vital Signs Vital Signs: Last Vital Signs Temp 98 F 06/27/17 22:56 Pulse 100 H 06/27/17 22:56 Resp 16 06/27/17 22:56 BP 165/109 H 06/27/17 22:56 Pulse Ox 100 06/27/17 23:26 - Medical History PMH: Anxiety, Asthma, Depression, Post Traumatic Stress Disorder Denies: Diabetes, Hepatitis, HIV, HTN, Chronic Kidney Disease, Seizures, Sexually Transmitted Disease - Family History Family History: States: Unknown Family Hx - Social History Alcohol: Occasional Drugs: Cannabis - Immunization History Hx Tetanus Toxoid Vaccination: Yes Hx Influenza Vaccination: No Hx Pneumococcal Vaccination: No - Home Medications Home Medications: Ambulatory Orders Medication Instructions Recorded Bupropion HCl [Wellbutrin] mg PO 12/28/15 Topiramate [Topamax] mg PO 12/28/15 clonazePAM [clonAZEPAM] mg PO 12/28/15 Cephalexin [cephalexin] 500 mg PO BID #20 cap 05/14/16 Cephalexin [cephalexin] 500 mg PO BID #20 cap 05/06/17 Clindamycin [Cleocin] 300 mg PO TID #30 cap 05/06/17 Amoxicillin/Clavulanate [Augmentin 1 tab PO BID #14 tab 06/01/17 875 MG-125 MG] - Allergies Allergies/Adverse Reactions: Allergies Allergy/AdvReac Type Severity Reaction Status Date / Time No Known Allergies Allergy Verified 06/27/17 23:02 Review of Systems ROS Statement: Except As Marked, All Systems Reviewed And Found Negative Skin: Positive for: Other (abrasions) Physical Exam - Reviewed Nursing Documentation Reviewed: Yes Vital Signs Reviewed: Yes - Physical Exam Appears: Positive for: Well, Non-toxic, No Acute Distress Head Exam: Positive for: ATRAUMATIC, NORMAL INSPECTION, NORMOCEPHALIC Skin: Positive for: Warm Eye Exam: Positive for: EOMI, Normal appearance, PERRL ENT: Positive for: Normal ENT Inspection Neck: Positive for: Normal, Painless ROM Cardiovascular/Chest: Positive for: Regular Rate, Rhythm Respiratory: Positive for: CNT, Normal Breath Sounds Gastrointestinal/Abdominal: Positive for: Normal Exam, Bowel Sounds, Soft Back: Positive for: Normal Inspection Extremity: Positive for: Normal ROM Neurologic/Psych: Positive for: Alert, Oriented Comments: superficial abrasions without ecchymosis or edema to right forehead and left cheek. - ECG O2 Sat by Pulse Oximetry: 100 Medical Decision Making Medical Decision Making: [facility] spoke to Nate Kim from crisis team, advised Pt was cleared by crisis earlier today. Assessment: 18:45PM: Crisis visist pt for evaluation Pt is a 27 y/o brought in by EMS due to aggressive and bizarre behavior while at a supermarket. Pt presents as under the influence of an unknown substance. Pt also admits to drinking earlier today. Pt has a hx of abusing cannabis. Pt is agitated and pt's speech and thoughts are disorganized. Pt denied any current psychiatric complaints and denies SI/HI. Pt reports a past psychiatric history of ADHD, PTSD, Depression, and Anxiety, however pt has remained noncompliant with treatment. Pt denied current avt hallucinations. Pt is not currently taking psychiatric medication. Pts mood is labile, affect is congruent. Pts speech is slurred, tangential, and disorganized. Pt is alert and oriented 3x. Pt was not observed responding to internal or external stimuli. Pt presents with delusional and tangential thoughts caused by marked intoxication. Pt does not present in a state of psychiatric distress, as symptoms are the result of chronic substance abuse. Pt is not seeking psychiatric admission at this time. Pt refused to allow [facility] to contact his parents for collateral information. 19:45pm: [facility] contacted Dr. Stephens for disposition. As per psychiatrist, pt to be discharged and referred for outpatient substance abuse services. Pt not offered admission, as primary presenting issue is substance abuse. CT scan not clinically indicated at this time. Pt medically and psychiatrically cleared for [facility] Disposition - Clinical Impression Clinical Impression: Substance abuse - Patient ED Disposition Is Patient to be Admitted: No - Disposition Disposition: Discharged/Transfer to Law Enforcement Disposition Time: 23:29 Condition: STABLE Additional Instructions: Patient is medically and psychiatrically cleared for incarceration at this time Instructions: Polysubstance Abuse (ED) Forms: [employer] (Angolan)
[2017-06-28 02:29] VITALS: BP 134/72; PULSE 72; RESP 18; O2SAT 99
== END 2017-06-28 01:10 ==
LOC: H.ER 22:54
DX: Z02.89 Encounter for other administrative examinations (principal); F19.10 Other psychoactive substance abuse, uncomplicated

== ENCOUNTER 2017-07-04 18:21 | Emergency (ER) | payer MEDICAID, OTHER ==
[2017-07-04 18:21] VITALS: BMI 25.0
[2017-07-04 18:29] VITALS: BP 114/69; PULSE 95; RESP 16; TEMP 98; O2SAT 98
--- NOTE | 2017-07-04 19:18 | ED PDOC ---
HPI: Psych/Substance Abuse Time Seen by Provider: 07/04/17 18:27 Chief Complaint (Nursing): Psychiatric Evaluation Chief Complaint (Provider): Psychiatric Evaluation History Per: Patient History/Exam Limitations: no limitations Onset/Duration Of Symptoms: Mins (prior to arrival) Current Symptoms Are (Timing): Gone Now Modifying Factor(s): Alcohol, Marijuana Additional Complaint(s): 27 year old male, well-known to emergency department, who presents to the ED via EMS for a psychiatric evaluation associated with hearing voices prior to arrival. Patient admitted to drinking alcohol and smoking marijuana earlier today. Denied visual hallucination, suicidal or homicidal ideation. Patient stated he "wanted his Ritalin" and reported he told EMS that he was hearing voices to get a ride to the ED. PMD: none provided Past Medical History Reviewed: Historical Data, Nursing Documentation, Vital Signs Vital Signs: Last Vital Signs Temp 98 F 07/04/17 18:23 Pulse 95 H 07/04/17 18:23 Resp 16 07/04/17 18:23 BP 114/69 07/04/17 18:23 Pulse Ox 98 07/04/17 18:23 - Medical History PMH: Anxiety, Asthma, Depression, Post Traumatic Stress Disorder Denies: Diabetes, Hepatitis, HIV, HTN, Chronic Kidney Disease, Seizures, Sexually Transmitted Disease - Surgical History Surgical History: No Surg Hx - Family History Family History: States: Unknown Family Hx - Social History Current smoker - smoking cessation education provided: Yes Alcohol: Occasional Drugs: Cannabis - Immunization History Hx Tetanus Toxoid Vaccination: Yes Hx Influenza Vaccination: No Hx Pneumococcal Vaccination: No - Home Medications Home Medications: Ambulatory Orders Medication Instructions Recorded Bupropion HCl [Wellbutrin] mg PO 12/28/15 Topiramate [Topamax] mg PO 12/28/15 clonazePAM [clonAZEPAM] mg PO 12/28/15 Cephalexin [cephalexin] 500 mg PO BID #20 cap 05/14/16 Cephalexin [cephalexin] 500 mg PO BID #20 cap 05/06/17 Clindamycin [Cleocin] 300 mg PO TID #30 cap 05/06/17 Amoxicillin/Clavulanate [Augmentin 1 tab PO BID #14 tab 06/01/17 875 MG-125 MG] - Allergies Allergies/Adverse Reactions: Allergies Allergy/AdvReac Type Severity Reaction Status Date / Time No Known Allergies Allergy Verified 07/04/17 18:22 Review of Systems ROS Statement: Except As Marked, All Systems Reviewed And Found Negative Psych: Positive for: Other (auditory hallucination). Negative for: Psychosis ( visual hallucination), Suicidal ideation (or homicidal ideation) Physical Exam - Reviewed Nursing Documentation Reviewed: Yes Vital Signs Reviewed: Yes - Physical Exam Appears: Positive for: Well, Non-toxic, No Acute Distress Head Exam: Positive for: ATRAUMATIC, NORMAL INSPECTION, NORMOCEPHALIC Eye Exam: Positive for: Normal appearance, EOMI, PERRL. Negative for: Nystagmus Respiratory: Positive for: Normal Breath Sounds. Negative for: Decreased Breath Sounds, Respiratory Distress Neurologic/Psych: Positive for: Alert (x3), Oriented, Mood/Affect (calm and cooperative), Gait (steady, unassisted), Other (no slurred speech). Negative for: Aphasia, Facial Droop - ECG O2 Sat by Pulse Oximetry: 98 (RA) Pulse Ox Interpretation: Normal Medical Decision Making Medical Decision Making: Initial Impression: ADHD, drug seeking behavior ____ Time: 1900 --Patient will be discharged home. Counseling was provided and all questions were answered regarding diagnosis. There is agreement to discharge plan. Return if symptoms persist or worsen. Clinical Impression: Substance abuse Scribe Attestation: Documented by Germaine Chairez, acting as a scribe for Bradley Ibarra PA-C. Provider Scribe Attestation: All medical record entries made by the Scribe were at my direction and personally dictated by me. I have reviewed the chart and agree that the record accurately reflects my personal performance of the history, physical exam, medical decision making, and the department course for this patient. I have also personally directed, reviewed, and agree with the discharge instructions and disposition. Disposition - Clinical Impression Clinical Impression: Substance abuse - Patient ED Disposition Is Patient to be Admitted: No Counseled Patient/Family Regarding: Diagnosis - Disposition Disposition: Routine/Home Disposition Time: 19:01 Condition: STABLE Instructions: Polysubstance Abuse (ED) Forms: [facility] (Tajik) Print Language: [id number]
== END 2017-07-04 19:34 | disposition home or self-care (01) ==
LOC: H.ER 18:21
DX: F12.90 Cannabis use, unspecified, uncomplicated (principal); F10.129 Alcohol abuse with intoxication, unspecified; F32.9 Major depressive disorder, single episode, unspecified; F43.10 Post-traumatic stress disorder, unspecified; F90.9 Attention-deficit hyperactivity disorder, unspecified type; J45.909 Unspecified asthma, uncomplicated

== ENCOUNTER 2017-07-05 23:01 | Emergency (ER) | payer OTHER ==
[2017-07-05 23:01] VITALS: BMI 25.0
[2017-07-05 23:11] VITALS: BP 123/66; PULSE 105; RESP 18; TEMP 97.9; O2SAT 100
== END 2017-07-05 23:30 | disposition left against medical advice (07) ==
LOC: H.ER 23:01
DX: Z02.89 Encounter for other administrative examinations (principal)
CPT/HCPCS: 99281; LWBS0

== ENCOUNTER 2017-07-07 03:22 | Emergency (ER) | payer OTHER ==
[2017-07-07 03:37] VITALS: BMI 26.2
[2017-07-07 03:40] VITALS: BP 124/70; PULSE 85; RESP 18; TEMP 98; O2SAT 97
--- NOTE | 2017-07-07 03:41 | ED PDOC ---
HPI: Psych/Substance Abuse Time Seen by Provider: 07/07/17 03:36 Chief Complaint (Nursing): Alcohol Ingestion Chief Complaint (Provider): Denies complaint History Per: Patient History/Exam Limitations: no limitations Additional Complaint(s): Pt was being aggressive on store and screed person called 911. Police instructed EMS to bring patient to the ER. Pt denies complaint. Pt well known by [employer]. Pt with history of alcohol abuse. Pt with clear speech and steady gait. Pt cooperative in ER> Past Medical History Reviewed: Historical Data, Nursing Documentation, Vital Signs - Medical History PMH: Anxiety, Asthma, Depression, Post Traumatic Stress Disorder Denies: Diabetes, Hepatitis, HIV, HTN, Chronic Kidney Disease, Seizures, Sexually Transmitted Disease - Surgical History Surgical History: No Surg Hx - Family History Family History: States: Unknown Family Hx - Living Arrangements Living Arrangements: With Family - Social History Current smoker - smoking cessation education provided: No - Immunization History Hx Tetanus Toxoid Vaccination: Yes Hx Influenza Vaccination: No Hx Pneumococcal Vaccination: No - Home Medications Home Medications: Ambulatory Orders Medication Instructions Recorded Bupropion HCl [Wellbutrin] mg PO 12/28/15 Topiramate [Topamax] mg PO 12/28/15 clonazePAM [clonAZEPAM] mg PO 12/28/15 Cephalexin [cephalexin] 500 mg PO BID #20 cap 05/14/16 Cephalexin [cephalexin] 500 mg PO BID #20 cap 05/06/17 Clindamycin [Cleocin] 300 mg PO TID #30 cap 05/06/17 Amoxicillin/Clavulanate [Augmentin 1 tab PO BID #14 tab 06/01/17 875 MG-125 MG] - Allergies Allergies/Adverse Reactions: Allergies Allergy/AdvReac Type Severity Reaction Status Date / Time No Known Allergies Allergy Verified 07/05/17 23:11 Review of Systems ROS Statement: Except As Marked, All Systems Reviewed And Found Negative Constitutional: Negative for: Fever, Chills Neurological: Negative for: Weakness, Numbness, Headache Psych: Negative for: Psychosis Physical Exam - Reviewed Nursing Documentation Reviewed: Yes Vital Signs Reviewed: Yes - Physical Exam Appears: Positive for: Well, Non-toxic, No Acute Distress Head Exam: Positive for: ATRAUMATIC, NORMAL INSPECTION, NORMOCEPHALIC Skin: Positive for: Normal Color, Warm, DRY Eye Exam: Positive for: Normal appearance ENT: Positive for: Normal ENT Inspection Neck: Positive for: Normal, Painless ROM Cardiovascular/Chest: Positive for: Regular Rate, Rhythm Respiratory: Positive for: CNT, Normal Breath Sounds Back: Positive for: Normal Inspection Extremity: Positive for: Normal ROM Neurologic/Psych: Positive for: Alert, Oriented Disposition - Clinical Impression Clinical Impression: Substance abuse - Patient ED Disposition Is Patient to be Admitted: No Counseled Patient/Family Regarding: Diagnosis, Need For Followup - Disposition Disposition: Routine/Home Disposition Time: 03:37 Condition: GOOD Instructions: ADHD in Adults (ED) Forms: [facility] [employer] (Latvian)
== END 2017-07-07 04:05 ==
LOC: H.ER 03:22
DX: F10.10 Alcohol abuse, uncomplicated (principal)

== ENCOUNTER 2017-07-08 19:09 | Emergency (ER) | payer OTHER ==
[2017-07-08 19:10] VITALS: BMI 26.2
[2017-07-08 19:26] VITALS: BP 136/73; PULSE 95; RESP 16; O2SAT 96
--- NOTE | 2017-07-08 20:36 | ED PDOC ---
HPI: Psych/Substance Abuse Time Seen by Provider: 07/08/17 19:48 Chief Complaint (Nursing): Headache Chief Complaint (Provider): Alcohol intoxication ED Caveat: Intoxicated History Per: Patient, EMS History/Exam Limitations: no limitations Onset/Duration Of Symptoms: Hrs Additional Complaint(s): Patient is a 27 y/o male well known to the provider and ED for multiple visits relating to alcohol abuse and med-seeking behavior who presents to the emergency department for acute alcohol intoxication. Denies any medical complaints. PCP: none provided. Past Medical History Reviewed: Historical Data, Nursing Documentation, Vital Signs Vital Signs: Last Vital Signs Temp Pulse 95 H 07/08/17 19:23 Resp 16 07/08/17 19:23 BP 136/73 07/08/17 19:23 Pulse Ox 96 07/08/17 19:23 - Medical History PMH: Anxiety, Asthma, Depression, Post Traumatic Stress Disorder Denies: Diabetes, Hepatitis, HIV, HTN, Chronic Kidney Disease, Seizures, Sexually Transmitted Disease - Surgical History Surgical History: No Surg Hx - Family History Family History: States: Unknown Family Hx - Immunization History Hx Tetanus Toxoid Vaccination: Yes Hx Influenza Vaccination: No Hx Pneumococcal Vaccination: No - Home Medications Home Medications: Ambulatory Orders Medication Instructions Recorded Bupropion HCl [Wellbutrin] mg PO 12/28/15 Topiramate [Topamax] mg PO 12/28/15 clonazePAM [clonAZEPAM] mg PO 12/28/15 Cephalexin [cephalexin] 500 mg PO BID #20 cap 05/14/16 Cephalexin [cephalexin] 500 mg PO BID #20 cap 05/06/17 Clindamycin [Cleocin] 300 mg PO TID #30 cap 05/06/17 Amoxicillin/Clavulanate [Augmentin 1 tab PO BID #14 tab 06/01/17 875 MG-125 MG] - Allergies Allergies/Adverse Reactions: Allergies Allergy/AdvReac Type Severity Reaction Status Date / Time No Known Allergies Allergy Verified 07/09/17 01:36 Review of Systems ROS Statement: Except As Marked, All Systems Reviewed And Found Negative Psych: Positive for: Other (EtOH intoxication) Physical Exam - Reviewed Nursing Documentation Reviewed: Yes Vital Signs Reviewed: Yes - Physical Exam Appears: Positive for: No Acute Distress Head Exam: Positive for: ATRAUMATIC, NORMAL INSPECTION, NORMOCEPHALIC Skin: Positive for: Normal Color, Warm, Dry Eye Exam: Positive for: Normal appearance Neck: Positive for: Normal Cardiovascular/Chest: Positive for: Regular Rate, Rhythm Respiratory: Negative for: Accessory Muscle Use, Respiratory Distress Extremity: Positive for: Normal ROM Neurologic/Psych: Positive for: Alert, Oriented (x3). Negative for: Motor/ Sensory Deficits - ECG O2 Sat by Pulse Oximetry: 96 (RA) Pulse Ox Interpretation: Normal Medical Decision Making Medical Decision Making: Time: 19:48 Initial impression: Acute alcohol intoxication Initial plan: Alcohol Serum test Urine Drug Screening 1:1 Observation Accucheck Restraints for patient safety Reevaluation At 23:00 patient AAO x3 and has steady gait and fluent speech Scribe Attestation: Documented by Martha Delgado, acting as a scribe for Theron Lindo MD. Provider Scribe Attestation: All medical record entries made by the Scribe were at my direction and personally dictated by me. I have reviewed the chart and agree that the record accurately reflects my personal performance of the history, physical exam, medical decision making, and the department course for this patient. I have also personally directed, reviewed, and agree with the discharge instructions and disposition. Disposition - Clinical Impression Clinical Impression: Alcohol intoxication - Patient ED Disposition Is Patient to be Admitted: No - Disposition Disposition: Routine/Home Disposition Time: 00:00 Condition: STABLE Instructions: Alcohol Intoxication (ED) Forms: [facility] [facility] (Swedish)
== END 2017-07-09 00:53 | disposition home or self-care (01) ==
LOC: H.ER 19:09
DX: F10.129 Alcohol abuse with intoxication, unspecified (principal); F32.9 Major depressive disorder, single episode, unspecified; F43.10 Post-traumatic stress disorder, unspecified; J45.909 Unspecified asthma, uncomplicated

== ENCOUNTER 2017-07-09 01:30 | Emergency (ER) | payer OTHER ==
[2017-07-09 01:37] VITALS: BMI 25.0
--- NOTE | 2017-07-09 03:39 | ED PDOC ---
HPI: Psych/Substance Abuse Time Seen by Provider: 07/09/17 01:39 Chief Complaint (Nursing): Psychiatric Evaluation Chief Complaint (Provider): agitation ED Caveat: Uncooperative History Per: EMS History/Exam Limitations: intoxication Onset/Duration Of Symptoms: Persistent Current Symptoms Are (Timing): Still Present Modifying Factor(s): Alcohol Severity: Moderate Associated Symptoms: Agitation Involuntary Hold By: Emergency Physician Additional Complaint(s): Patient is a 27 year old male PMHX alcohol abuse and ADD. Patient is well known to provider for multiple visits. Nico was discharged from this ED 1 hour [employer] and is BIB EMS for erratic behavior. Patient agitated and uncooperative. Due to high risk of elopement/self or staff injury Haldol/ Ativan and 4 point restraints ordered upon return. Past Medical History Vital Signs: Last Vital Signs Temp 98.3 F 07/09/17 01:37 Pulse 104 H 07/09/17 01:37 Resp 18 07/09/17 01:37 BP 140/93 H 07/09/17 01:37 Pulse Ox 100 07/09/17 01:37 - Medical History PMH: Anxiety, Asthma, Depression, Post Traumatic Stress Disorder Denies: Diabetes, Hepatitis, HIV, HTN, Chronic Kidney Disease, Seizures, Sexually Transmitted Disease - Family History Family History: States: Unknown Family Hx - Immunization History Hx Tetanus Toxoid Vaccination: Yes Hx Influenza Vaccination: No Hx Pneumococcal Vaccination: No - Home Medications Home Medications: Ambulatory Orders Medication Instructions Recorded Bupropion HCl [Wellbutrin] mg PO 12/28/15 Topiramate [Topamax] mg PO 12/28/15 clonazePAM [clonAZEPAM] mg PO 12/28/15 Cephalexin [cephalexin] 500 mg PO BID #20 cap 05/14/16 Cephalexin [cephalexin] 500 mg PO BID #20 cap 05/06/17 Clindamycin [Cleocin] 300 mg PO TID #30 cap 05/06/17 Amoxicillin/Clavulanate [Augmentin 1 tab PO BID #14 tab 06/01/17 875 MG-125 MG] - Allergies Allergies/Adverse Reactions: Allergies Allergy/AdvReac Type Severity Reaction Status Date / Time No Known Allergies Allergy Verified 07/09/17 01:36 Physical Exam - Reviewed Nursing Documentation Reviewed: Yes Vital Signs Reviewed: Yes - Physical Exam Appears: Positive for: No Acute Distress Skin: Positive for: Normal Color, Warm, Dry Eye Exam: Positive for: Normal appearance, EOMI, PERRL ENT: Positive for: Normal ENT Inspection Cardiovascular/Chest: Positive for: Tachycardia Respiratory: Positive for: Normal Breath Sounds Gastrointestinal/Abdominal: Positive for: Normal Exam, Bowel Sounds, Soft. Negative for: Tenderness Extremity: Positive for: Normal ROM. Negative for: Tenderness, Pedal Edema Neurologic/Psych: Positive for: Alert, Oriented, Mood/Affect (agitated). Negative for: Motor/Sensory Deficits - ECG O2 Sat by Pulse Oximetry: 100 - Critical Care Total Time (In Min): 30 Medical Decision Making Medical Decision Makin yo male with alcohol intoxication and agitation Restraints, 1:1, Haldol/Ativan ordered At 5:30AM pt is AAO x3 and has steayd gait with fluent speech Stable for discharge home Dx Alcohol induced mood disorder Improved Disposition - Clinical Impression Clinical Impression: Alcohol-induced mood disorder - Patient ED Disposition Is Patient to be Admitted: No - Disposition Disposition: Routine/Home Disposition Time: 04:00 Condition: STABLE Instructions: Alcohol Intoxication (ED) Forms: [facility] (Malay)
[2017-07-09 04:58] VITALS: BP 128/87; PULSE 85; RESP 16; TEMP 98.2
[2017-07-09 05:28] VITALS: O2SAT 100
== END 2017-07-09 05:28 | disposition home or self-care (01) ==
LOC: H.ER 01:30
DX: F10.129 Alcohol abuse with intoxication, unspecified (principal); Z86.59 Personal history of other mental and behavioral disorders; J45.909 Unspecified asthma, uncomplicated
CPT/HCPCS: 96372; 99283; J1630; J2060

== ENCOUNTER 2017-07-09 23:42 | Emergency (ER) | payer OTHER ==
[2017-07-09 23:43] VITALS: BMI 25.0
[2017-07-09 23:47] VITALS: BP 137/86; PULSE 89; RESP 16; TEMP 98.3; O2SAT 99
--- NOTE | 2017-07-10 00:33 | ED PDOC ---
HPI: Male Pain Time Seen by Provider: 07/09/17 23:52 Chief Complaint (Nursing): Male Genitourinary Chief Complaint (Provider): Testicular pain, resolved History Per: Patient History/Exam Limitations: no limitations Onset/Duration Of Symptoms: Hrs Current Symptoms Are (Timing): Better Additional Complaint(s): Pt states he was given Geodon in ER and then his testicles hurt. PT states the pain is better now. Past Medical History Reviewed: Historical Data, Nursing Documentation, Vital Signs Vital Signs: Last Vital Signs Temp 98.3 F 07/09/17 23:45 Pulse 89 07/09/17 23:45 Resp 16 07/09/17 23:45 BP 137/86 07/09/17 23:45 Pulse Ox 99 07/09/17 23:45 - Medical History PMH: Anxiety, Asthma, Depression, Post Traumatic Stress Disorder Denies: Diabetes, Hepatitis, HIV, HTN, Chronic Kidney Disease, Seizures, Sexually Transmitted Disease - Surgical History Surgical History: No Surg Hx - Family History Family History: States: Unknown Family Hx - Living Arrangements Living Arrangements: With Family - Social History Current smoker - smoking cessation education provided: No - Immunization History Hx Tetanus Toxoid Vaccination: Yes Hx Influenza Vaccination: No Hx Pneumococcal Vaccination: No - Home Medications Home Medications: Ambulatory Orders Medication Instructions Recorded Bupropion HCl [Wellbutrin] mg PO 12/28/15 Topiramate [Topamax] mg PO 12/28/15 clonazePAM [clonAZEPAM] mg PO 12/28/15 Cephalexin [cephalexin] 500 mg PO BID #20 cap 05/14/16 Cephalexin [cephalexin] 500 mg PO BID #20 cap 05/06/17 Clindamycin [Cleocin] 300 mg PO TID #30 cap 05/06/17 Amoxicillin/Clavulanate [Augmentin 1 tab PO BID #14 tab 06/01/17 875 MG-125 MG] - Allergies Allergies/Adverse Reactions: Allergies Allergy/AdvReac Type Severity Reaction Status Date / Time No Known Allergies Allergy Verified 07/09/17 23:44 Review of Systems ROS Statement: Except As Marked, All Systems Reviewed And Found Negative Constitutional: Negative for: Fever, Chills Cardiovascular: Negative for: Chest Pain Genitourinary Male: Positive for: Other (Testicular pain). Negative for: Dysuria, Penile Pain Physical Exam - Reviewed Nursing Documentation Reviewed: Yes Vital Signs Reviewed: Yes - Physical Exam Appears: Positive for: Well, Non-toxic, No Acute Distress Head Exam: Positive for: ATRAUMATIC, NORMAL INSPECTION, NORMOCEPHALIC Skin: Positive for: Normal Color, Warm, DRY Eye Exam: Positive for: Normal appearance ENT: Positive for: Normal ENT Inspection Neck: Positive for: Normal, Painless ROM Cardiovascular/Chest: Positive for: Regular Rate, Rhythm Respiratory: Positive for: Normal Breath Sounds. Negative for: Accessory Muscle Use, Respiratory Distress Gastrointestinal/Abdominal: Positive for: Normal Exam, Bowel Sounds, Soft. Negative for: Tenderness Male Genital Exam: Positive for: normal genitalia (Good bilateral creamesteric reflex ) Back: Positive for: Normal Inspection Extremity: Positive for: Normal ROM Neurologic/Psych: Positive for: Alert, Oriented - ECG O2 Sat by Pulse Oximetry: 99 Pulse Ox Interpretation: Normal Disposition - Clinical Impression Clinical Impression: Testicular pain - Patient ED Disposition Is Patient to be Admitted: No Counseled Patient/Family Regarding: Diagnosis, Need For Followup - Disposition Disposition: Routine/Home Disposition Time: 00:22 Condition: GOOD Instructions: Testicle Pain (ED) Forms: [facility] (Yi)
== END 2017-07-10 00:28 | disposition home or self-care (01) ==
LOC: H.ER 23:42
DX: N50.819 Testicular pain, unspecified (principal); J45.909 Unspecified asthma, uncomplicated; Z86.59 Personal history of other mental and behavioral disorders

== ENCOUNTER 2017-07-11 14:34 | Emergency (ER) | payer OTHER ==
[2017-07-11 14:34] VITALS: BMI 25.0
[2017-07-11 14:51] VITALS: PULSE 112; RESP 18; TEMP 98.6; O2SAT 98
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
== END 2017-07-11 15:11 | disposition home or self-care (01) ==
LOC: H.ER 14:34
DX: R51 Headache (principal); J45.909 Unspecified asthma, uncomplicated; F43.10 Post-traumatic stress disorder, unspecified; Z86.59 Personal history of other mental and behavioral disorders; Y35.813A Legal intervention involving manhandling, suspect injured, initial encounter

== ENCOUNTER 2017-07-11 21:38 | Emergency (ER) | payer OTHER ==
[2017-07-11 21:38] VITALS: BMI 25.0
--- NOTE | 2017-07-11 22:26 | ED PDOC ---
HPI: Psych/Substance Abuse Time Seen by Provider: 07/11/17 21:53 Chief Complaint (Nursing): Alcohol Ingestion Chief Complaint (Provider): Alcohol intoxication and suicidal ideation ED Caveat: Intoxicated History Per: Patient, Other (police) History/Exam Limitations: intoxication Onset/Duration Of Symptoms: Hrs Modifying Factor(s): Alcohol Associated Symptoms: Suicidal Thoughts. denies: Suicidal Plan Additional Complaint(s): Patient is a 27 y/o male brought in to the ED by police for medical and psychiatric clearance. Patient is well known to the ED and is presenting for alcohol intoxication and suicidal ideation, with no suicidal plan. Patient admits to drinking alcohol intoxication and denies drug use. History and ROS are limited due to patient's intoxicated state. Past Medical History Reviewed: Historical Data, Nursing Documentation, Vital Signs Vital Signs: Last Vital Signs Temp 97.6 F 07/11/17 21:41 Pulse 97 H 07/11/17 21:41 Resp 16 07/11/17 21:41 BP 146/94 H 07/11/17 21:41 Pulse Ox 99 07/11/17 21:41 - Medical History PMH: Anxiety, Asthma, Depression, Post Traumatic Stress Disorder Denies: Diabetes, Hepatitis, HIV, HTN, Chronic Kidney Disease, Seizures, Sexually Transmitted Disease - Surgical History Surgical History: No Surg Hx - Family History Family History: States: Unknown Family Hx - Social History Alcohol: Occasional Drugs: Denies - Immunization History Hx Tetanus Toxoid Vaccination: Yes Hx Influenza Vaccination: No Hx Pneumococcal Vaccination: No - Home Medications Home Medications: Ambulatory Orders Medication Instructions Recorded Bupropion HCl [Wellbutrin] mg PO 12/28/15 Topiramate [Topamax] mg PO 12/28/15 clonazePAM [clonAZEPAM] mg PO 12/28/15 Cephalexin [cephalexin] 500 mg PO BID #20 cap 05/14/16 Cephalexin [cephalexin] 500 mg PO BID #20 cap 05/06/17 Clindamycin [Cleocin] 300 mg PO TID #30 cap 05/06/17 Amoxicillin/Clavulanate [Augmentin 1 tab PO BID #14 tab 06/01/17 875 MG-125 MG] - Allergies Allergies/Adverse Reactions: Allergies Allergy/AdvReac Type Severity Reaction Status Date / Time No Known Allergies Allergy Verified 07/11/17 21:41 Review of Systems ROS Statement: Except As Marked, All Systems Reviewed And Found Negative Review Of Systems: ROS cannot be obtained secondary to pt's inabilty to answer questions. Psych: Positive for: Suicidal ideation Physical Exam - Reviewed Nursing Documentation Reviewed: Yes Vital Signs Reviewed: Yes - Physical Exam Appears: Positive for: No Acute Distress (Intoxicated) Head Exam: Positive for: ATRAUMATIC, NORMOCEPHALIC Skin: Positive for: Normal Color, Warm, Dry Eye Exam: Positive for: Normal appearance Neck: Positive for: Normal, Painless ROM, Supple Cardiovascular/Chest: Positive for: Regular Rate, Rhythm. Negative for: Murmur Respiratory: Positive for: Normal Breath Sounds. Negative for: Respiratory Distress Gastrointestinal/Abdominal: Positive for: Normal Exam Back: Positive for: Normal Inspection Extremity: Positive for: Normal ROM. Negative for: Pedal Edema, Deformity Neurologic/Psych: Negative for: Alert, Oriented - ECG O2 Sat by Pulse Oximetry: 99 (RA) Pulse Ox Interpretation: Normal Medical Decision Making Medical Decision Makin:54 Initial Impression: Alcohol and malingering Initial Plan: --Crisis Evaluation 200 Pt awake, alert, cleared by crisis. Will d/c into police custody. Scribe Attestation: Documented by Lashanda Jones, acting as a scribe for Mckinley Lewis MD Provider Scribe Attestation: All medical record entries made by the Scribe were at my direction and personally dictated by me. I have reviewed the chart and agree that the record accurately reflects my personal performance of the history, physical exam, medical decision making, and the department course for this patient. I have also personally directed, reviewed, and agree with the discharge instructions and disposition. Disposition - Clinical Impression Clinical Impression: Alcohol intoxication - Disposition Referrals: [facility] [Outside] [facility] [Outside] Disposition Time: 02:00 Condition: STABLE Additional Instructions: Patient is medically and psychiatrically cleared for incarceration. Instructions: Alcohol Intoxication (ED) Forms: [employer] (Lithuanian)
[2017-07-12 02:57] VITALS: BP 125/76; PULSE 68; RESP 18; TEMP 98
[2017-07-12 07:00] VITALS: O2SAT 99
== END 2017-07-12 02:57 ==
LOC: H.ER 21:38
DX: F10.129 Alcohol abuse with intoxication, unspecified (principal); J45.909 Unspecified asthma, uncomplicated; R45.851 Suicidal ideations; Z00.8 Encounter for other general examination; F43.10 Post-traumatic stress disorder, unspecified; Z86.59 Personal history of other mental and behavioral disorders

== ENCOUNTER 2017-09-27 20:15 | Emergency (ER) | payer MEDICAID, OTHER ==
[2017-09-27 20:15] VITALS: BMI 25.0
[2017-09-27 20:23] VITALS: RESP 18
--- NOTE | 2017-09-27 20:29 | ED PDOC ---
HPI: General Adult Time Seen by Provider: 09/27/17 20:22 Chief Complaint (Nursing): Medical Clearance Chief Complaint (Provider): clearance for incarceration History Per: Patient, Other (PD) History/Exam Limitations: intoxication Additional Complaint(s): 27 y/o male brought here in police custody for medical/psychiatric clearance for incarceration. Patient admits to drinking today; denies acute medical or psychiatric complaints. Past Medical History Reviewed: Historical Data, Nursing Documentation, Vital Signs Vital Signs: Last Vital Signs Temp 98.6 F 09/27/17 20:21 Pulse 90 09/27/17 20:32 Resp 18 09/27/17 20:21 BP 146/93 H 09/27/17 20:21 Pulse Ox 100 09/27/17 20:32 - Medical History PMH: Anxiety, Asthma, Depression, Post Traumatic Stress Disorder Denies: Diabetes, Hepatitis, HIV, HTN, Chronic Kidney Disease, Seizures, Sexually Transmitted Disease - Family History Family History: States: Unknown Family Hx - Immunization History Hx Tetanus Toxoid Vaccination: Yes Hx Influenza Vaccination: No Hx Pneumococcal Vaccination: No - Home Medications Home Medications: Ambulatory Orders Medication Instructions Recorded Bupropion HCl [Wellbutrin] mg PO 12/28/15 Topiramate [Topamax] mg PO 12/28/15 clonazePAM [clonAZEPAM] mg PO 12/28/15 Cephalexin [cephalexin] 500 mg PO BID #20 cap 05/14/16 Cephalexin [cephalexin] 500 mg PO BID #20 cap 05/06/17 Clindamycin [Cleocin] 300 mg PO TID #30 cap 05/06/17 Amoxicillin/Clavulanate [Augmentin 1 tab PO BID #14 tab 06/01/17 875 MG-125 MG] - Allergies Allergies/Adverse Reactions: Allergies Allergy/AdvReac Type Severity Reaction Status Date / Time No Known Allergies Allergy Verified 07/11/17 21:41 Review of Systems ROS Statement: Except As Marked, All Systems Reviewed And Found Negative Physical Exam - Reviewed Nursing Documentation Reviewed: Yes Vital Signs Reviewed: Yes - Physical Exam Appears: Positive for: Well, Non-toxic, No Acute Distress Head Exam: Positive for: ATRAUMATIC, NORMAL INSPECTION, NORMOCEPHALIC Skin: Positive for: Normal Color Eye Exam: Positive for: Normal appearance ENT: Positive for: Normal ENT Inspection Cardiovascular/Chest: Positive for: Regular Rate, Rhythm Respiratory: Positive for: Normal Breath Sounds Gastrointestinal/Abdominal: Positive for: Normal Exam Back: Positive for: Normal Inspection Extremity: Positive for: Normal ROM Neurologic/Psych: Positive for: Alert, Oriented - ECG O2 Sat by Pulse Oximetry: 100 - Progress ED Course And Treament: Patient evaluated by cut and cover line worker and cleared for discharge as per Dr. Stephens. Disposition - Clinical Impression Clinical Impression: Alcohol use - Patient ED Disposition Is Patient to be Admitted: No - Disposition Disposition: Discharged/Transfer to Law Enforcement Disposition Time: 21:32 Condition: STABLE Additional Instructions: Patient medically and psychiatrically cleared for incarceration Instructions: Alcohol Use - When Is Drinking a Problem?
[2017-09-27 21:41] VITALS: BP 128/78; PULSE 88; TEMP 98.2; O2SAT 99
== END 2017-09-27 21:41 ==
LOC: H.ER 20:15
DX: F10.10 Alcohol abuse, uncomplicated; F32.9 Major depressive disorder, single episode, unspecified; F43.10 Post-traumatic stress disorder, unspecified; J45.909 Unspecified asthma, uncomplicated

== ENCOUNTER 2017-09-29 18:03 | Emergency (ER) | payer OTHER ==
[2017-09-29 18:04] VITALS: BMI 25.0
[2017-09-29 18:11] VITALS: TEMP 97.4
--- NOTE | 2017-09-29 18:23 | ED PDOC ---
HPI: Psych/Substance Abuse Time Seen by Provider: 09/29/17 18:22 Chief Complaint (Nursing): Alcohol Ingestion Chief Complaint (Provider): etoh History Per: Patient, EMS Additional Complaint(s): 27-year-old male presents to emergency department for evaluation of alcohol intoxication. Patient arrives via police and EMS. Patient is well-known to the emergency department for frequent visits. He is currently non-domiciled. PMD: none Past Medical History Reviewed: Historical Data, Nursing Documentation, Vital Signs Vital Signs: Last Vital Signs Temp 97.4 F L 09/29/17 18:06 Pulse 89 09/29/17 18:06 Resp 18 09/29/17 18:06 BP 131/84 09/29/17 18:06 Pulse Ox 99 09/29/17 18:06 - Medical History PMH: Anxiety, Asthma, Depression, Post Traumatic Stress Disorder - Family History Family History: States: No Known Family Hx - Living Arrangements Living Arrangements: Other (non-domiciled) - Social History Alcohol: Occasional Drugs: Denies - Immunization History Hx Tetanus Toxoid Vaccination: Yes Hx Influenza Vaccination: No Hx Pneumococcal Vaccination: No - Home Medications Home Medications: Ambulatory Orders Medication Instructions Recorded Bupropion HCl [Wellbutrin] mg PO 12/28/15 Topiramate [Topamax] mg PO 12/28/15 clonazePAM [clonAZEPAM] mg PO 12/28/15 Cephalexin [cephalexin] 500 mg PO BID #20 cap 05/14/16 Cephalexin [cephalexin] 500 mg PO BID #20 cap 05/06/17 Clindamycin [Cleocin] 300 mg PO TID #30 cap 05/06/17 Amoxicillin/Clavulanate [Augmentin 1 tab PO BID #14 tab 06/01/17 875 MG-125 MG] - Allergies Allergies/Adverse Reactions: Allergies Allergy/AdvReac Type Severity Reaction Status Date / Time No Known Allergies Allergy Verified 07/11/17 21:41 Review of Systems ROS Statement: Except As Marked, All Systems Reviewed And Found Negative Psych: Positive for: Other (etoh) Physical Exam - Reviewed Nursing Documentation Reviewed: Yes Vital Signs Reviewed: Yes - Physical Exam Appears: Positive for: Well, Non-toxic, No Acute Distress Skin: Negative for: Rash Eye Exam: Positive for: Normal appearance Cardiovascular/Chest: Positive for: Regular Rate, Rhythm Respiratory: Positive for: Normal Breath Sounds Gastrointestinal/Abdominal: Positive for: Soft. Negative for: Tenderness Back: Positive for: Normal Inspection Extremity: Positive for: Normal ROM Neurologic/Psych: Positive for: Alert, Oriented, Gait (steady) - ECG O2 Sat by Pulse Oximetry: 99 Pulse Ox Interpretation: Normal Medical Decision Making Medical Decision Makin27 year old intoxicated male Patient would not cooperate with changing into gowns upon arrival. Security came to bedside and patient became more cooperative. Plan: ED observation. 20:45 - patient is asleep, arousable, vital signs stable 22:30 - patient is asleep, arousable, vital signs stable 23:55 - patient is asleep, arousable, vital signs stable, care of patient continued by Dr. Lindo. Disposition - Clinical Impression Clinical Impression: Alcohol intoxication - Disposition Disposition Time: 23:55 Condition: STABLE Forms: [employer] (Turkmen)
[2017-09-30 06:40] VITALS: BP 122/70; PULSE 86; RESP 16; O2SAT 98
== END 2017-09-30 02:35 | disposition home or self-care (01) ==
LOC: H.ER 18:03
DX: F10.129 Alcohol abuse with intoxication, unspecified (principal); F32.9 Major depressive disorder, single episode, unspecified; F43.10 Post-traumatic stress disorder, unspecified; J45.909 Unspecified asthma, uncomplicated

== ENCOUNTER 2017-10-01 17:07 | Emergency (ER) | payer BC, MEDICAID, OTHER ==
[2017-10-01 17:07] VITALS: BMI 25.0
[2017-10-01 17:11] VITALS: BP 151/92; PULSE 85; RESP 16; TEMP 97.8; O2SAT 100
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
--- NOTE | 2017-10-01 19:46 | ED PDOC ---
- ECG O2 Sat by Pulse Oximetry: 100 Medical Decision Making Medical Decision Making: Case was signed out to marketing copywriter from [employer] pending sobriety. 8:35 pm: Patient is awake, alert, has steady gait. Patient is stable for discharge. Disposition - Clinical Impression Clinical Impression: Alcohol use - POA Present On Arrival: None - Disposition Referrals: [facility] [Outside] Disposition: Routine/Home Disposition Time: 20:33 Condition: STABLE Instructions: Alcohol Use - When Is Drinking a Problem? Forms: [employer] (Iraqi)
== END 2017-10-01 20:51 | disposition home or self-care (01) ==
LOC: H.ER 17:07
DX: F10.10 Alcohol abuse, uncomplicated (principal); F31.9 Bipolar disorder, unspecified; F43.10 Post-traumatic stress disorder, unspecified; J45.909 Unspecified asthma, uncomplicated

== ENCOUNTER 2017-10-01 21:56 | Emergency (ER) | payer OTHER ==
[2017-10-01 21:56] VITALS: BMI 25.0
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
[2017-10-02 00:35] VITALS: PULSE 82; RESP 16
[2017-10-02 04:14] VITALS: BP 122/78; TEMP 98.1; O2SAT 98
== END 2017-10-02 04:13 | disposition home or self-care (01) ==
LOC: H.ER 21:56
DX: F10.10 Alcohol abuse, uncomplicated (principal); F31.9 Bipolar disorder, unspecified; F43.10 Post-traumatic stress disorder, unspecified; J45.909 Unspecified asthma, uncomplicated
CPT/HCPCS: 96372; 99285; J1630; J2060

== ENCOUNTER 2017-10-03 07:16 | Emergency (ER) | payer OTHER ==
[2017-10-03 08:03] VITALS: BMI 25.7
[2017-10-03] MEDS ORDERED: Sodium Chloride 0.9% 1,000 ML IV STA (08:03)
--- NOTE | 2017-10-03 08:14 | ED PDOC ---
HPI: Psych/Substance Abuse Time Seen by Provider: 10/03/17 07:36 Chief Complaint (Provider): Anxiety History Per: Patient History/Exam Limitations: no limitations Onset/Duration Of Symptoms: Days (today) Additional Complaint(s): Feels anxious. Has palpitations. No chest pain. Drank some alcohol. No drugs. Not suicidal or homicidal. No dyspnea, weakness, headaches, dizziness, back pain. No abd pain. Past Medical History Reviewed: Nursing Documentation, Vital Signs - Medical History PMH: Anxiety, Asthma, Bipolar Disorder, Depression, Post Traumatic Stress Disorder - Family History Family History: States: Unknown Family Hx - Social History Alcohol: Occasional Drugs: Denies - Home Medications Home Medications: Ambulatory Orders Medication Instructions Recorded Bupropion HCl [Wellbutrin] 1 tab PO DAILY 12/28/15 Topiramate [Topamax] 1 tab PO DAILY 12/28/15 clonazePAM [clonAZEPAM] 1 tab PO DAILY 12/28/15 - Allergies Allergies/Adverse Reactions: Allergies Allergy/AdvReac Type Severity Reaction Status Date / Time No Known Allergies Allergy Verified 10/01/17 21:57 Review of Systems ROS Statement: Except As Marked, All Systems Reviewed And Found Negative Cardiovascular: Positive for: Palpitations Psych: Positive for: Anxiety Physical Exam - Reviewed Nursing Documentation Reviewed: Yes Vital Signs Reviewed: Yes - Physical Exam Appears: Positive for: Non-toxic, No Acute Distress Head Exam: Positive for: ATRAUMATIC, NORMAL INSPECTION, NORMOCEPHALIC Skin: Positive for: Normal Color, Warm, DRY Eye Exam: Positive for: EOMI, Normal appearance, PERRL ENT: Positive for: Normal ENT Inspection Neck: Positive for: Normal, Painless ROM Cardiovascular/Chest: Positive for: Regular Rate, Rhythm, Chest Non Tender. Negative for: Edema Respiratory: Positive for: CNT, Normal Breath Sounds Gastrointestinal/Abdominal: Positive for: Normal Exam, Bowel Sounds, Soft. Negative for: Tenderness Back: Positive for: Normal Inspection. Negative for: L CVA Tenderness, R CVA Tenderness Extremity: Positive for: Normal ROM Neurologic/Psych: Positive for: Alert, Oriented - Laboratory Results Result Diagrams: 10/03/17 08:30 10/03/17 08:30 - ECG ECG: Positive for: Interpreted By Me, Viewed By Me ECG Rhythm: Positive for: Sinus Tachycardia (mild 114) - Progress ED Course And Treament: 951: Stable. AAOx3. Pain free. Tolerated PO. Crisis saw pt. Does not meet criteria for admit. Disposition - Clinical Impression Clinical Impression: Anxiety, Palpitation - Patient ED Disposition Is Patient to be Admitted: No Counseled Patient/Family Regarding: Studies Performed, Diagnosis, Need For Followup - Disposition Referrals: [facility] [Outside] - 10/05/17 Disposition: Routine/Home Disposition Time: 09:53 Condition: STABLE Additional Instructions: Return if not better in 3 days. Instructions: Anxiety, Adult (DC), Palpitations
[2017-10-03 08:43] LABS: BASO % 0.6 % (0.0-2.0); EOS % 0.5 % (0.0-4.0); HEMOGLOBIN 14.1 g/dL (12.0-18.0); LYMPH # 1.3 K/uL (1.0-4.3); LYMPH % 17.4 % (20.0-40.0); MEAN CELL VOLUME 90.7 fl (80.0-94.0); MEAN CORPUSCULAR HEMOGLOBIN 30.7 pg (27.0-31.0); MEAN CORPUSCULAR HGB CONC 33.9 g/dL (33.0-37.0); MEAN PLATELET VOLUME 9.6 fl (7.2-11.7); MONO # 0.4 K/uL (0.0-0.8); MONO % 6.1 % (0.0-10.0); NEUT # 5.5 K/uL (1.8-7.0); NEUT % 75.4 % (50.0-75.0); RBC 4.58 Mil/uL (4.40-5.90); RED CELL DISTRIBUTION WIDTH 14.8 % (11.5-14.5); WHITE BLOOD COUNT 7.3 K/uL (4.8-10.8)
[2017-10-03 08:50] LABS: ALB/GLOB RATIO 1.4 (1.0-2.1); ALBUMIN 5.1 g/dL (3.5-5.0); ALT/SGPT 50 U/L (21-72); AST/SGOT 51 U/L (17-59); BLOOD UREA NITROGEN 18 mg/dl (9-20); CALCIUM 9.5 mg/dL (8.4-10.2); GFR AFRICAN-AMERICAN > 60; GFR NON-AFRICAN AMERICAN > 60
[2017-10-03 09:34] LABS: BARBITURATES, UR NEGATIVE (NEGATIVE); BENZODIAZEPINES, UR NEGATIVE (NEGATIVE); OPIATES, UR NEGATIVE (NEGATIVE); PHENCYCLIDINE, UR NEGATIVE (NEGATIVE)
[2017-10-03 10:13] VITALS: BP 150/81; PULSE 94; RESP 18; O2SAT 100
--- NOTE | 2017-10-04 12:13 | CARD ---
APPROVED REPORT EKG Measurement Heart [id number] <Conclusion> Sinus tachycardia Otherwise normal ECG
== END 2017-10-03 10:30 | disposition home or self-care (01) ==
LOC: H.ER 07:16
DX: R00.2 Palpitations (principal); F41.9 Anxiety disorder, unspecified; F31.9 Bipolar disorder, unspecified; F43.10 Post-traumatic stress disorder, unspecified; J45.909 Unspecified asthma, uncomplicated
CPT/HCPCS: 80053; 80320; 80324; 80345; 80346; 80349; 80353; 80358; 80361; 83992; 85025; 93005; 99282; J7040

== ENCOUNTER 2017-10-03 18:31 | Emergency (ER) | payer OTHER ==
[2017-10-03 18:31] VITALS: BMI 25.7
[2017-10-03 18:37] VITALS: BP 140/84; PULSE 57; RESP 19; TEMP 98.3; O2SAT 100
--- NOTE | 2017-10-03 18:42 | ED PDOC ---
HPI: Psych/Substance Abuse Time Seen by Provider: 10/03/17 18:33 Chief Complaint (Nursing): Alcohol Ingestion Chief Complaint (Provider): Brought by EMS - In Police custody History Per: Patient History/Exam Limitations: no limitations Onset/Duration Of Symptoms: Mins Additional Complaint(s): Pt under arrest on arrival by [place] police. Pt denies complaint. Pt admits to drinking alcohol earlier today. Past Medical History Reviewed: Historical Data, Nursing Documentation, Vital Signs Vital Signs: Last Vital Signs Temp 98.3 F 10/03/17 18:34 Pulse 57 L 10/03/17 18:34 Resp 19 10/03/17 18:34 BP 140/84 10/03/17 18:34 Pulse Ox 100 10/03/17 18:34 - Medical History PMH: Anxiety, Asthma, Bipolar Disorder, Depression, Post Traumatic Stress Disorder Denies: Diabetes, Hepatitis, HIV, HTN, Seizures, Sexually Transmitted Disease - Surgical History Surgical History: No Surg Hx - Family History Family History: States: Unknown Family Hx - Living Arrangements Living Arrangements: With Family - Social History Current smoker - smoking cessation education provided: No - Home Medications Home Medications: Ambulatory Orders Medication Instructions Recorded Bupropion HCl [Wellbutrin] 1 tab PO DAILY 12/28/15 Topiramate [Topamax] 1 tab PO DAILY 12/28/15 clonazePAM [clonAZEPAM] 1 tab PO DAILY 12/28/15 - Allergies Allergies/Adverse Reactions: Allergies Allergy/AdvReac Type Severity Reaction Status Date / Time No Known Allergies Allergy Verified 10/01/17 21:57 Review of Systems ROS Statement: Except As Marked, All Systems Reviewed And Found Negative Constitutional: Negative for: Fever, Chills Cardiovascular: Negative for: Chest Pain, Palpitations Respiratory: Negative for: Cough - ECG O2 Sat by Pulse Oximetry: 100 Disposition - Clinical Impression Clinical Impression: Normal exam - Patient ED Disposition Is Patient to be Admitted: No - Disposition Referrals: FAMILY PROVIDER,NO [Primary Care Provider] - Disposition: Routine/Home Disposition Time: 18:41 Condition: GOOD Additional Instructions: Pt is medically and psychiatrically stable for incarceration. Instructions: Effects of Alcohol on Your Health Forms: [employer] (Slovenian)
== END 2017-10-03 18:54 ==
LOC: SUPCPDRO 18:31 → H.ER 18:31
DX: F10.10 Alcohol abuse, uncomplicated; F31.9 Bipolar disorder, unspecified; F43.10 Post-traumatic stress disorder, unspecified; J45.909 Unspecified asthma, uncomplicated

== ENCOUNTER 2017-10-13 12:10 | Emergency (ER) | payer OTHER ==
[2017-10-13 12:10] VITALS: BMI 25.7
[2017-10-13 12:17] VITALS: O2SAT 99
--- NOTE | 2017-10-13 12:47 | ED PDOC ---
HPI: Psych/Substance Abuse Time Seen by Provider: 10/13/17 13:00 Chief Complaint (Nursing): Alcohol Ingestion Chief Complaint (Provider): alcohol intoxication ED Caveat: Intoxicated History Per: Patient History/Exam Limitations: intoxication Onset/Duration Of Symptoms: Days (several) Suicide/Self Injury Attempted (Context): None Ingestion Of Substance: etOH Modifying Factor(s): Alcohol Severity: Moderate Past Medical History Vital Signs: Last Vital Signs Temp 98.0 F 10/13/17 12:12 Pulse 99 H 10/13/17 12:12 Resp 16 10/13/17 12:12 BP 125/87 10/13/17 12:12 Pulse Ox 99 10/13/17 12:12 - Medical History PMH: Anxiety, Asthma, Bipolar Disorder, Depression, Post Traumatic Stress Disorder Denies: Diabetes, Hepatitis, HIV, HTN, Seizures, Sexually Transmitted Disease - Family History Family History: States: Unknown Family Hx - Home Medications Home Medications: Ambulatory Orders Medication Instructions Recorded Bupropion HCl [Wellbutrin] 1 tab PO DAILY 12/28/15 Topiramate [Topamax] 1 tab PO DAILY 12/28/15 clonazePAM [clonAZEPAM] 1 tab PO DAILY 12/28/15 - Allergies Allergies/Adverse Reactions: Allergies Allergy/AdvReac Type Severity Reaction Status Date / Time No Known Allergies Allergy Verified 10/01/17 21:57 Physical Exam - Reviewed Nursing Documentation Reviewed: Yes Vital Signs Reviewed: Yes - Physical Exam Appears: Positive for: Uncomfortable. Negative for: Non-toxic Head Exam: Positive for: ATRAUMATIC, NORMAL INSPECTION, NORMOCEPHALIC Skin: Positive for: Normal Color Eye Exam: Positive for: Normal appearance. Negative for: Periorbital swelling, Periorbital tenderness, Scleral icterus Cardiovascular/Chest: Positive for: Regular Rate, Rhythm, Chest Non Tender. Negative for: Edema, Gallop, Bradycardia, Tachycardia, Friction Rub Respiratory: Positive for: Normal Breath Sounds. Negative for: Accessory Muscle Use Pulses-Carotid (L): 2+ Pulses-Carotid (R): 2+ - ECG O2 Sat by Pulse Oximetry: 99 Medical Decision Making Medical Decision Making: etoh for pt well known to this ED; etOH by blood and r/o other toxins await sobriety for d/c approx 2300 Disposition - Clinical Impression Clinical Impression: Intoxication, Alcohol abuse with alcohol-induced disorder, Alcohol ingestion, Alcohol use Counseled Patient/Family Regarding: Diagnosis - Disposition Referrals: Alcoholics Anonymous [Outside] Disposition: Routine/Home Instructions: Alcohol Abuse and Alcoholism (DC), Alcohol Use - When Is Drinking a Problem? Forms: [employer] (Indian)
[2017-10-13 13:10] LABS: URINE BILIRUBIN NEGATIVE (NEGATIVE); URINE BLOOD NEGATIVE (NEGATIVE); URINE CLARITY CLEAR (Clear); URINE COLOR STRAW (YELLOW); URINE GLUCOSE (UA) NEG (Normal); URINE LEUKOCYTE ESTERASE NEG Leu/uL (Negative); URINE PROTEIN NEGATIVE (NEGATIVE); URINE UROBILINOGEN 0.2-1.0 mg/dL (0.2-1.0)
[2017-10-13 13:17] LABS: BENZODIAZEPINES, UR NEGATIVE (NEGATIVE); OPIATES, UR NEGATIVE (NEGATIVE)
[2017-10-13 13:18] LABS: BARBITURATES, UR NEGATIVE (NEGATIVE); PHENCYCLIDINE, UR NEGATIVE (NEGATIVE)
[2017-10-13 17:24] VITALS: BP 122/72; PULSE 88; RESP 18; TEMP 98
== END 2017-10-13 17:14 | disposition home or self-care (01) ==
LOC: H.ER 12:10
DX: F10.129 Alcohol abuse with intoxication, unspecified (principal); F31.9 Bipolar disorder, unspecified; F43.10 Post-traumatic stress disorder, unspecified; J45.909 Unspecified asthma, uncomplicated; F10.19 Alcohol abuse with unspecified alcohol-induced disorder; Y90.8 Blood alcohol level of 240 mg/100 ml or more

== ENCOUNTER 2017-10-19 01:51 | Emergency (ER) | payer BC, MEDICAID, OTHER ==
[2017-10-19 01:51] VITALS: BMI 25.7
[2017-10-19 02:06] VITALS: BP 119/73; PULSE 98; RESP 18; TEMP 99; O2SAT 97
--- NOTE | 2017-10-19 02:10 | ED PDOC ---
HPI: Psych/Substance Abuse Time Seen by Provider: 10/19/17 02:05 Chief Complaint (Nursing): Alcohol Ingestion Chief Complaint (Provider): alcohol intoxication History/Exam Limitations: no limitations Onset/Duration Of Symptoms: Mins (just prior to arrival) Current Symptoms Are (Timing): Still Present Additional Complaint(s): 27 yo male is well known to the provider and the ED for multiple visits relating to intoxication and bed-seeking behavior. He presents to the ED today for alcohol intoxication, onset of prior to arrival. Past Medical History Reviewed: Historical Data, Nursing Documentation, Vital Signs Vital Signs: Last Vital Signs Temp 99 F 10/19/17 02:04 Pulse 98 H 10/19/17 02:04 Resp 18 10/19/17 02:04 BP 119/73 10/19/17 02:04 Pulse Ox 97 10/19/17 02:04 - Medical History PMH: Anxiety, Asthma, Bipolar Disorder, Depression, Post Traumatic Stress Disorder Denies: Diabetes, Hepatitis, HIV, HTN, Seizures, Sexually Transmitted Disease - Surgical History Surgical History: No Surg Hx - Family History Family History: States: Unknown Family Hx - Social History Current smoker - smoking cessation education provided: Yes Alcohol: Social Drugs: Other (yes) - Home Medications Home Medications: Ambulatory Orders Medication Instructions Recorded Bupropion HCl [Wellbutrin] 1 tab PO DAILY 12/28/15 Topiramate [Topamax] 1 tab PO DAILY 12/28/15 clonazePAM [clonAZEPAM] 1 tab PO DAILY 12/28/15 - Allergies Allergies/Adverse Reactions: Allergies Allergy/AdvReac Type Severity Reaction Status Date / Time No Known Allergies Allergy Verified 10/01/17 21:57 Review of Systems ROS Statement: Except As Marked, All Systems Reviewed And Found Negative Constitutional: Negative for: Fever Psych: Negative for: Suicidal ideation Physical Exam - Reviewed Nursing Documentation Reviewed: Yes Vital Signs Reviewed: Yes - Physical Exam Appears: Positive for: Well, Non-toxic, No Acute Distress Head Exam: Positive for: ATRAUMATIC, NORMAL INSPECTION, NORMOCEPHALIC Skin: Positive for: Normal Color, Warm, DRY Eye Exam: Positive for: EOMI, Normal appearance, PERRL ENT: Positive for: Normal ENT Inspection Neck: Positive for: Normal, Painless ROM Cardiovascular/Chest: Positive for: Regular Rate, Rhythm. Negative for: Murmur Respiratory: Positive for: Normal Breath Sounds. Negative for: Respiratory Distress Gastrointestinal/Abdominal: Positive for: Normal Exam, Soft. Negative for: Tenderness Back: Positive for: Normal Inspection. Negative for: L CVA Tenderness, R CVA Tenderness Extremity: Positive for: Normal ROM. Negative for: Pedal Edema, Deformity Neurologic/Psych: Positive for: Alert, Oriented, Gait (steady), Other (speech is clear). Negative for: Motor/Sensory Deficits - ECG O2 Sat by Pulse Oximetry: 97 (RA) Pulse Ox Interpretation: Normal Medical Decision Making Medical Decision Making: Time: --02:04 Impression: --alcohol use without impairment Patient is stable for discharge home Scribe Attestation: Documented by Aryan Hewitt acting as a scribe for Theron Lindo MD. Provider Attestation: All medical record entries made by the Scribe were at my direction and personally dictated by me. I have reviewed the chart and agree that the record accurately reflects my personal performance of the history, physical exam, medical decision making, and the department course for this patient. I have also personally directed, reviewed, and agree with the discharge instructions and disposition. Disposition - Clinical Impression Clinical Impression: Alcohol use - Patient ED Disposition Is Patient to be Admitted: No - Disposition Disposition: Routine/Home Disposition Time: 03:00 Condition: STABLE Instructions: Alcohol Abuse and Alcoholism (DC) Forms: [employer] (Macedonian)
== END 2017-10-19 02:13 | disposition home or self-care (01) ==
LOC: H.ER 01:51
DX: F10.129 Alcohol abuse with intoxication, unspecified (principal); F31.9 Bipolar disorder, unspecified; F43.10 Post-traumatic stress disorder, unspecified; J45.909 Unspecified asthma, uncomplicated

== ENCOUNTER 2017-10-30 09:18 | Emergency (ER) | payer MEDICAID, OTHER ==
[2017-10-30 09:18] VITALS: BMI 25.7
[2017-10-30 09:24] VITALS: TEMP 97.8; O2SAT 98
--- NOTE | 2017-10-30 09:32 | ED PDOC ---
HPI: Psych/Substance Abuse Time Seen by Provider: 10/30/17 09:18 Chief Complaint (Nursing): Alcohol Ingestion Chief Complaint (Provider): Alcohol abuse History Per: Patient, EMS History/Exam Limitations: no limitations Onset/Duration Of Symptoms: Days (today) Additional Complaint(s): Pt. found wandering around liquor store. Denies any pain, weakness, headaches, numbness, tingles, fever, chills. No falls. Not suicidal or homicidal. No abd pain. No fall or injury. Past Medical History Reviewed: Nursing Documentation, Vital Signs Vital Signs: Last Vital Signs Temp 97.8 F 10/30/17 09:19 Pulse 111 H 10/30/17 09:19 Resp 20 10/30/17 09:19 BP 163/87 H 10/30/17 09:19 Pulse Ox 98 10/30/17 09:19 - Medical History PMH: Anxiety, Asthma, Bipolar Disorder, Depression Denies: Diabetes, Hepatitis, HIV, HTN, Seizures, Sexually Transmitted Disease - Family History Family History: States: Unknown Family Hx - Immunization History Hx Tetanus Toxoid Vaccination: No Hx Influenza Vaccination: No Hx Pneumococcal Vaccination: No - Home Medications Home Medications: Ambulatory Orders Medication Instructions Recorded Bupropion HCl [Wellbutrin] 1 tab PO DAILY 12/28/15 Topiramate [Topamax] 1 tab PO DAILY 12/28/15 clonazePAM [Klonopin] 1 tab PO DAILY 12/28/15 traZODone [Desyrel] 50 mg PO HS PRN #30 tab 10/26/17 - Allergies Allergies/Adverse Reactions: Allergies Allergy/AdvReac Type Severity Reaction Status Date / Time No Known Allergies Allergy Verified 10/22/17 13:36 Review of Systems ROS Statement: Except As Marked, All Systems Reviewed And Found Negative Physical Exam - Reviewed Nursing Documentation Reviewed: Yes Vital Signs Reviewed: Yes - Physical Exam Appears: Positive for: Non-toxic, No Acute Distress Head Exam: Positive for: ATRAUMATIC, NORMAL INSPECTION, NORMOCEPHALIC Skin: Positive for: Normal Color, Warm, DRY Eye Exam: Positive for: EOMI, Normal appearance, PERRL ENT: Positive for: Normal ENT Inspection Neck: Positive for: Normal, Painless ROM Cardiovascular/Chest: Positive for: Regular Rate, Rhythm Respiratory: Positive for: CNT, Normal Breath Sounds Gastrointestinal/Abdominal: Positive for: Normal Exam, Bowel Sounds, Soft. Negative for: Tenderness Back: Positive for: Normal Inspection. Negative for: L CVA Tenderness, R CVA Tenderness Extremity: Positive for: Normal ROM. Negative for: Tenderness, Pedal Edema Neurologic/Psych: Positive for: Alert, Oriented. Negative for: Motor/Sensory Deficits - Laboratory Results Interpretation Of Abn Labs: drugs and etoh - ECG ECG: Positive for: Interpreted By Me, Viewed By Me ECG Rhythm: Positive for: Normal QRS, Normal ST Segment, Sinus Rhythm O2 Sat by Pulse Oximetry: 98 Pulse Ox Interpretation: Normal - Progress ED Course And Treament: 1009: Stable. More aggressive with staff. Threat of harm to self. Has acute psychosis possibly from alcohol. Will give sedation and restraints. 1609: Stable. AAOx3. Pain free. Tolerated PO. Fu with pcp. Ambulated with no issues. Sobriety reached clinically. Disposition - Clinical Impression Clinical Impression: Alcohol use, Cannabis abuse - Patient ED Disposition Is Patient to be Admitted: No Counseled Patient/Family Regarding: Studies Performed, Diagnosis, Need For Followup - Disposition Referrals: [facility] [Outside] - 11/01/17 Disposition: Routine/Home Disposition Time: 16:12 Condition: STABLE Instructions: Marijuana Use and Addiction, Alcohol Use - When Is Drinking a Problem?
[2017-10-30 10:42] LABS: BARBITURATES, UR NEGATIVE (NEGATIVE); BENZODIAZEPINES, UR NEGATIVE (NEGATIVE); OPIATES, UR NEGATIVE (NEGATIVE); PHENCYCLIDINE, UR NEGATIVE (NEGATIVE)
[2017-10-30 10:49] VITALS: BP 107/54; PULSE 80; RESP 17
--- NOTE | 2017-10-31 00:12 | CARD ---
APPROVED REPORT EKG Measurement Heart [id number] <Conclusion> Normal sinus rhythm Normal ECG
== END 2017-10-30 16:16 | disposition home or self-care (01) ==
LOC: H.ER 09:18
DX: F12.10 Cannabis abuse, uncomplicated (principal); Z86.59 Personal history of other mental and behavioral disorders; J45.909 Unspecified asthma, uncomplicated
CPT/HCPCS: 80320; 80324; 80345; 80346; 80349; 80353; 80358; 80361; 82948; 83992; 93005; 96372; 99284; J1630; J2060

== ENCOUNTER 2017-10-31 04:05 | Emergency (ER) | payer OTHER ==
[2017-10-31 04:07] VITALS: BMI 25.7
[2017-10-31 04:16] VITALS: BP 154/90; PULSE 116; RESP 18; TEMP 98.2; O2SAT 98
--- NOTE | 2017-10-31 05:20 | ED PDOC ---
HPI: Psych/Substance Abuse Time Seen by Provider: 10/31/17 04:31 Chief Complaint (Nursing): Alcohol Ingestion Chief Complaint (Provider): alcohol intoxication Additional Complaint(s): Pt known well to ER for bed seeking behavior when family does not allow pt home. He admits drinking tonight. Found in a laundromat asleep. Denies injury. Reports he had "lockjaw" earlier but that has resolved. Past Medical History Vital Signs: Last Vital Signs Temp 98.2 F 10/31/17 04:12 Pulse 116 H 10/31/17 04:12 Resp 18 10/31/17 04:12 BP 154/90 H 10/31/17 04:12 Pulse Ox 98 10/31/17 04:12 - Medical History PMH: Anxiety, Asthma, Bipolar Disorder, Depression, Post Traumatic Stress Disorder Denies: Diabetes, Hepatitis, HIV, HTN, Seizures, Sexually Transmitted Disease - Family History Family History: States: Unknown Family Hx - Immunization History Hx Tetanus Toxoid Vaccination: No Hx Influenza Vaccination: No Hx Pneumococcal Vaccination: No - Home Medications Home Medications: Ambulatory Orders Medication Instructions Recorded Bupropion HCl [Wellbutrin] 1 tab PO DAILY 12/28/15 Topiramate [Topamax] 1 tab PO DAILY 12/28/15 clonazePAM [Klonopin] 1 tab PO DAILY 12/28/15 traZODone [Desyrel] 50 mg PO HS PRN #30 tab 10/26/17 - Allergies Allergies/Adverse Reactions: Allergies Allergy/AdvReac Type Severity Reaction Status Date / Time No Known Allergies Allergy Verified 10/31/17 04:12 - ECG O2 Sat by Pulse Oximetry: 98 Disposition - Clinical Impression Clinical Impression: Intoxication Counseled Patient/Family Regarding: Studies Performed, Diagnosis - Disposition Referrals: Alcoholics Anonymous [Outside] Disposition: Routine/Home Disposition Time: 06:00 Condition: IMPROVED Instructions: Alcohol Use - When Is Drinking a Problem?
== END 2017-10-31 06:30 | disposition home or self-care (01) ==
LOC: H.ER 04:05
DX: F10.129 Alcohol abuse with intoxication, unspecified (principal); F31.9 Bipolar disorder, unspecified; F43.10 Post-traumatic stress disorder, unspecified; J45.909 Unspecified asthma, uncomplicated

== ENCOUNTER 2017-11-01 15:36 | Emergency (ER) | payer MEDICAID, OTHER ==
[2017-11-01 15:36] VITALS: BMI 25.7
[2017-11-01 15:55] VITALS: BP 138/90; PULSE 100; RESP 18; TEMP 98; O2SAT 99
--- NOTE | 2017-11-01 16:15 | ED PDOC ---
HPI: Psych/Substance Abuse Time Seen by Provider: 11/01/17 16:00 Chief Complaint (Nursing): Medical Clearance History Per: Patient, Other (police) History/Exam Limitations: no limitations Modifying Factor(s): None Severity: None Associated Symptoms: Anxiety, Agitation. denies: Depression, Paranoia, Suicidal Thoughts, Suicidal Plan Involuntary Hold By: None Additional History Per: Patient Additional Complaint(s): Patient for medical and psych clearance for incarceration. Patient is excitable , overactive and yelling in triage. pt here denies any complaints. pt is well known to this ed with almost daily visitis for bed seeking behavior, alcohol abuse Past Medical History Reviewed: Historical Data, Nursing Documentation, Vital Signs Vital Signs: Last Vital Signs Temp 98 F 11/01/17 15:52 Pulse 100 H 11/01/17 15:52 Resp 18 11/01/17 15:52 BP 138/90 11/01/17 15:52 Pulse Ox 99 11/01/17 15:52 - Medical History PMH: Anxiety, Asthma, Bipolar Disorder, Depression, Post Traumatic Stress Disorder Denies: Diabetes, Hepatitis, HIV, HTN, Seizures, Sexually Transmitted Disease - Family History Family History: States: Unknown Family Hx - Living Arrangements Living Arrangements: With Family - Immunization History Hx Tetanus Toxoid Vaccination: No Hx Influenza Vaccination: No Hx Pneumococcal Vaccination: No - Home Medications Home Medications: Ambulatory Orders Medication Instructions Recorded Bupropion HCl [Wellbutrin] 1 tab PO DAILY 12/28/15 Topiramate [Topamax] 1 tab PO DAILY 12/28/15 clonazePAM [Klonopin] 1 tab PO DAILY 12/28/15 traZODone [Desyrel] 50 mg PO HS PRN #30 tab 10/26/17 - Allergies Allergies/Adverse Reactions: Allergies Allergy/AdvReac Type Severity Reaction Status Date / Time No Known Allergies Allergy Verified 10/31/17 04:12 Review of Systems ROS Statement: Except As Marked, All Systems Reviewed And Found Negative Constitutional: Negative for: Fever, Chills Cardiovascular: Negative for: Chest Pain, Palpitations Respiratory: Negative for: Cough, Shortness of Breath Gastrointestinal: Negative for: Nausea, Vomiting, Abdominal Pain Physical Exam - Reviewed Nursing Documentation Reviewed: Yes Vital Signs Reviewed: Yes - Physical Exam Appears: Positive for: Non-toxic, No Acute Distress Head Exam: Positive for: ATRAUMATIC, NORMAL INSPECTION, NORMOCEPHALIC Skin: Positive for: Normal Color, Warm, Dry Eye Exam: Positive for: Normal appearance, EOMI, PERRL Neck: Positive for: Normal, Painless ROM, Supple Cardiovascular/Chest: Positive for: Regular Rate, Rhythm, Chest Non Tender. Negative for: Edema, Gallop, Murmur, Bradycardia, Tachycardia Respiratory: Positive for: Normal Breath Sounds. Negative for: Decreased Breath Sounds, Accessory Muscle Use, Crackles, Rales, Rhonchi, Stridor, Wheezing , Respiratory Distress Gastrointestinal/Abdominal: Positive for: Normal Exam, Bowel Sounds, Soft. Negative for: Tenderness Extremity: Positive for: Normal ROM. Negative for: Tenderness, Pedal Edema Neurologic/Psych: Positive for: Alert, manager strategic alliances II-XII, Oriented, Mood/Affect ( anxious), Gait (steady). Negative for: Motor/Sensory Deficits, Aphasia, Facial Droop - ECG O2 Sat by Pulse Oximetry: 99 Pulse Ox Interpretation: Normal - Progress ED Course And Treament: pt medically and psychologically clear for incarceration, pt seen and eval by crisis counselor. Re-evaluation Time: 16:49 Condition: Improved Disposition - Clinical Impression Clinical Impression: Substance induced mood disorder - Patient ED Disposition Is Patient to be Admitted: No Counseled Patient/Family Regarding: Studies Performed, Diagnosis, Need For Followup - Disposition Referrals: [facility] [Outside] (2 to 3 days) Disposition: Routine/Home Disposition Time: 16:53 Condition: GOOD Additional Instructions: pt medically and psychologically clear for incarceration Instructions: General (DC) Forms: [employer] (Yakut)
== END 2017-11-01 17:30 ==
LOC: H.ER 15:36
DX: F19.94 Other psychoactive substance use, unspecified with psychoactive substance-induced mood disorder (principal); J45.909 Unspecified asthma, uncomplicated; Z00.8 Encounter for other general examination

== ENCOUNTER 2017-11-03 21:30 | Emergency (ER) | payer OTHER ==
[2017-11-03 21:31] VITALS: BMI 25.7
[2017-11-03 21:36] VITALS: BP 127/71; PULSE 100; RESP 16; TEMP 98; O2SAT 98
--- NOTE | 2017-11-03 21:51 | ED PDOC ---
HPI: General Adult Time Seen by Provider: 11/03/17 21:45 Chief Complaint (Nursing): Medical Clearance Chief Complaint (Provider): clearance for incarceration History Per: Patient Additional Complaint(s): 27 y/o male here in police custody for medical and psychiatric clearance for incarceration. Patient states he was arrested for "allegedly" shop lifting. Patient denies suicidal ideations or other acute psychiatric or medical complaints. Past Medical History Reviewed: Historical Data, Nursing Documentation, Vital Signs Vital Signs: Last Vital Signs Temp 98.0 F 11/03/17 21:34 Pulse 100 H 11/03/17 21:34 Resp 16 11/03/17 21:34 BP 127/71 11/03/17 21:34 Pulse Ox 98 11/03/17 21:51 - Medical History PMH: Anxiety, Asthma, Bipolar Disorder, Depression, Post Traumatic Stress Disorder, Schizophrenia Denies: Diabetes, Hepatitis, HIV, HTN, Seizures, Sexually Transmitted Disease - Family History Family History: States: Unknown Family Hx - Immunization History Hx Tetanus Toxoid Vaccination: No Hx Influenza Vaccination: No Hx Pneumococcal Vaccination: No - Home Medications Home Medications: Ambulatory Orders Medication Instructions Recorded Bupropion HCl [Wellbutrin] 1 tab PO DAILY 12/28/15 Topiramate [Topamax] 1 tab PO DAILY 12/28/15 clonazePAM [Klonopin] 1 tab PO DAILY 12/28/15 traZODone [Desyrel] 50 mg PO HS PRN #30 tab 10/26/17 - Allergies Allergies/Adverse Reactions: Allergies Allergy/AdvReac Type Severity Reaction Status Date / Time No Known Allergies Allergy Verified 11/03/17 21:34 Review of Systems ROS Statement: Except As Marked, All Systems Reviewed And Found Negative Physical Exam - Reviewed Nursing Documentation Reviewed: Yes Vital Signs Reviewed: Yes - Physical Exam Appears: Positive for: Well, Non-toxic, No Acute Distress Head Exam: Positive for: ATRAUMATIC, NORMAL INSPECTION, NORMOCEPHALIC Skin: Positive for: Normal Color Eye Exam: Positive for: Normal appearance ENT: Positive for: Normal ENT Inspection Cardiovascular/Chest: Positive for: Regular Rate, Rhythm Respiratory: Positive for: Normal Breath Sounds Gastrointestinal/Abdominal: Positive for: Normal Exam Back: Positive for: Normal Inspection Extremity: Positive for: Normal ROM Neurologic/Psych: Positive for: Alert, Oriented - ECG O2 Sat by Pulse Oximetry: 98 - Progress ED Course And Treament: Patient evaluated by bulbs farmworker and cleared for discharge as per Yrn Holliday /Dr. Pierre. Disposition - Clinical Impression Clinical Impression: Mood disorder Counseled Patient/Family Regarding: Diagnosis, Need For Followup - Disposition Disposition: Discharged/Transfer to Law Enforcement Disposition Time: 22:37 Condition: STABLE Additional Instructions: Patient medically cleared for incarceration Patient psychiatrically cleared for incarceration and has denied suicidal ideations. Forms: [employer] (Greenlandic)
== END 2017-11-03 22:44 ==
LOC: H.ER 21:30
DX: F39 Unspecified mood [affective] disorder (principal); Z86.59 Personal history of other mental and behavioral disorders; J45.909 Unspecified asthma, uncomplicated; Z02.89 Encounter for other administrative examinations

== ENCOUNTER 2017-11-05 00:59 | Emergency (ER) | payer OTHER ==
[2017-11-05 01:00] VITALS: BMI 25.7
[2017-11-05 01:11] VITALS: BP 121/75; PULSE 103; RESP 16; TEMP 98.1; O2SAT 98
--- NOTE | 2017-11-05 01:23 | ED PDOC ---
HPI: Psych/Substance Abuse Time Seen by Provider: 11/05/17 01:10 Chief Complaint (Nursing): Alcohol Ingestion ED Caveat: Acuity of Condition, Intoxicated History Per: Patient History/Exam Limitations: intoxication Onset/Duration Of Symptoms: Hrs Current Symptoms Are (Timing): Still Present Modifying Factor(s): Alcohol Associated Symptoms: denies: Anger, Anxiety, Agitation, Depression, Paranoia, Suicidal Thoughts, Suicidal Plan Additional History Per: Patient Additional Complaint(s): Patient brought to ER for alcohol intoxication, was seen in ER yesterday for similar, was far more intoxicated yesterday and was under arrest, patient was released from halfway with a ankle tracker. Patient admits to drinking 20 beers but denies drugs. Patient currently A&O x 3 with completely steady gait and normal mentation. Past Medical History Reviewed: Historical Data, Nursing Documentation, Vital Signs Vital Signs: Last Vital Signs Temp 98.1 F 11/05/17 01:07 Pulse 103 H 11/05/17 01:07 Resp 16 11/05/17 01:07 BP 121/75 11/05/17 01:07 Pulse Ox 98 11/05/17 01:07 - Medical History PMH: Anxiety, Asthma, Bipolar Disorder, Depression, Post Traumatic Stress Disorder, Schizophrenia Denies: Diabetes, Hepatitis, HIV, HTN, Seizures, Sexually Transmitted Disease - Family History Family History: States: Unknown Family Hx - Immunization History Hx Tetanus Toxoid Vaccination: No Hx Influenza Vaccination: No Hx Pneumococcal Vaccination: No - Home Medications Home Medications: Ambulatory Orders Medication Instructions Recorded Bupropion HCl [Wellbutrin] 1 tab PO DAILY 12/28/15 Topiramate [Topamax] 1 tab PO DAILY 12/28/15 clonazePAM [Klonopin] 1 tab PO DAILY 12/28/15 traZODone [Desyrel] 50 mg PO HS PRN #30 tab 10/26/17 - Allergies Allergies/Adverse Reactions: Allergies Allergy/AdvReac Type Severity Reaction Status Date / Time No Known Allergies Allergy Verified 11/03/17 21:34 Review of Systems ROS Statement: Except As Marked, All Systems Reviewed And Found Negative Physical Exam - Reviewed Nursing Documentation Reviewed: Yes Vital Signs Reviewed: Yes - Physical Exam Appears: Positive for: Well, Non-toxic, No Acute Distress Head Exam: Positive for: ATRAUMATIC, NORMAL INSPECTION, NORMOCEPHALIC Skin: Positive for: Normal Color, Warm, DRY Eye Exam: Positive for: EOMI, Normal appearance, PERRL ENT: Positive for: Normal ENT Inspection Neck: Positive for: Normal, Painless ROM Cardiovascular/Chest: Positive for: Regular Rate, Rhythm Respiratory: Positive for: CNT, Normal Breath Sounds Gastrointestinal/Abdominal: Positive for: Normal Exam, Soft Back: Positive for: Normal Inspection Extremity: Positive for: Normal ROM Neurologic/Psych: Positive for: Alert, personal service representative II-XII, Oriented, Mood/Affect (normal ), Gait (normal). Negative for: Motor/Sensory Deficits - ECG O2 Sat by Pulse Oximetry: 98 Pulse Ox Interpretation: Normal Medical Decision Making Medical Decision MakinAM A/P: Hx of bipolar d/o, PTSD, ETOH abuse p/w alcohol intoxication -patient intoxicated but well appearing, oriented, with stead gait -does not require further evaluation or monitoring in ER -will d/c home Disposition - Clinical Impression Clinical Impression: Alcohol use - Patient ED Disposition Is Patient to be Admitted: No - Disposition Referrals: Alcoholics Anonymous [Outside] Disposition: Routine/Home Disposition Time: 01:23 Condition: GOOD Instructions: Alcohol Use - When Is Drinking a Problem?
== END 2017-11-05 01:40 | disposition home or self-care (01) ==
LOC: H.ER 00:59
DX: F10.129 Alcohol abuse with intoxication, unspecified (principal); F20.9 Schizophrenia, unspecified; F31.9 Bipolar disorder, unspecified; F43.10 Post-traumatic stress disorder, unspecified; J45.909 Unspecified asthma, uncomplicated

== ENCOUNTER 2017-11-07 02:21 | Emergency (ER) | payer MEDICAID, OTHER ==
[2017-11-07 02:27] VITALS: BMI 25.3
[2017-11-07 02:30] VITALS: BP 143/94; PULSE 87; RESP 18; TEMP 98.1; O2SAT 100
--- NOTE | 2017-11-07 02:52 | ED PDOC ---
Lower Extremity Pain/Injury Time Seen by Provider: 11/07/17 02:42 Chief Complaint (Nursing): Lower Extremity Problem/Injury History Per: Patient Additional Complaint(s): Pt states for the past several days he's had itching and pain to the bottoms of both feet. Denies trauma, fever, numbness, tingling. Past Medical History Reviewed: Historical Data, Nursing Documentation, Vital Signs Vital Signs: Last Vital Signs Temp 98.1 F 11/07/17 02:27 Pulse 87 11/07/17 02:27 Resp 18 11/07/17 02:27 BP 143/94 H 11/07/17 02:27 Pulse Ox 100 11/07/17 02:27 - Medical History PMH: Anxiety, Asthma, Bipolar Disorder, Depression, Post Traumatic Stress Disorder, Schizophrenia Denies: Diabetes, Hepatitis, HIV, HTN, Chronic Kidney Disease, Seizures, Sexually Transmitted Disease - Family History Family History: States: No Known Family Hx - Immunization History Hx Tetanus Toxoid Vaccination: No Hx Influenza Vaccination: No Hx Pneumococcal Vaccination: No - Home Medications Home Medications: Ambulatory Orders Medication Instructions Recorded Bupropion HCl [Wellbutrin] 1 tab PO DAILY 12/28/15 Topiramate [Topamax] 1 tab PO DAILY 12/28/15 clonazePAM [Klonopin] 1 tab PO DAILY 12/28/15 traZODone [Desyrel] 50 mg PO HS PRN #30 tab 10/26/17 Clotrimazole 1% Cream [Lotrimin 1%] 1 applic TOP BID #1 tube 11/07/17 - Allergies Allergies/Adverse Reactions: Allergies Allergy/AdvReac Type Severity Reaction Status Date / Time No Known Allergies Allergy Verified 11/05/17 02:45 Review of Systems ROS Statement: Except As Marked, All Systems Reviewed And Found Negative Musculoskeletal: Positive for: Foot Pain Physical Exam - Physical Exam Appears: Positive for: Well, Non-toxic, No Acute Distress Skin: Positive for: Normal Color, Warm. Negative for: Rash Eye Exam: Positive for: Normal appearance Pulses-Dorsalis Pedis (L): 2+ Pulses-Dorsalis Pedis (R): 2+ Extremity: Positive for: Capillary Refill (< 2 seconds on both feet), Other (b/ l plantar surface of feet with scattered scaling and interdigital scaling and maceration noted without ulceration, vesicles, or discharge; L ankle bracelet ) Neurologic/Psych: Positive for: Alert, Oriented, Gait (steady unassisted) - ECG O2 Sat by Pulse Oximetry: 100 Disposition - Clinical Impression Clinical Impression: Tinea pedis - Patient ED Disposition Is Patient to be Admitted: No - Disposition Referrals: Podiatry Clinic [Outside] Disposition: Routine/Home Disposition Time: 02:55 Condition: STABLE Prescriptions: Clotrimazole 1% Cream [Lotrimin 1%] 1 applic TOP BID #1 tube Instructions: Athlete's Foot
== END 2017-11-07 03:05 | disposition home or self-care (01) ==
LOC: H.ER 02:21
DX: B35.3 Tinea pedis (principal); Z86.59 Personal history of other mental and behavioral disorders; J45.909 Unspecified asthma, uncomplicated

== ENCOUNTER 2017-11-07 22:18 | Emergency (ER) | payer OTHER ==
[2017-11-07 22:19] VITALS: BMI 25.3
[2017-11-07 22:24] VITALS: BP 131/85; PULSE 93; RESP 16; TEMP 97.3; O2SAT 99
--- NOTE | 2017-11-07 22:34 | ED PDOC ---
HPI: Psych/Substance Abuse Time Seen by Provider: 11/07/17 22:22 Chief Complaint (Nursing): Psychiatric Evaluation Chief Complaint (Provider): Denies complaints Additional Complaint(s): 27 yo male presents with EMS for evaluation. EMS state that patient reports hearing voices and that the voices were telling him to hurt people. When asked about previous complaint pt states he lied. 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 PT calm and cooperative. Pt denies SI/HI. Pt reports drinking earlier today however comes in with clear speech and steady gait. Past Medical History Reviewed: Historical Data, Nursing Documentation, Vital Signs Vital Signs: Last Vital Signs Temp 97.3 F L 11/07/17 22:21 Pulse 93 H 11/07/17 22:21 Resp 16 11/07/17 22:21 BP 131/85 11/07/17 22:21 Pulse Ox 99 11/07/17 22:21 - Medical History PMH: Anxiety, Asthma, Bipolar Disorder, Depression, Post Traumatic Stress Disorder, Schizophrenia Denies: Diabetes, Hepatitis, HIV, HTN, Chronic Kidney Disease, Seizures, Sexually Transmitted Disease - Family History Family History: States: No Known Family Hx - Living Arrangements Living Arrangements: With Family - Social History Current smoker - smoking cessation education provided: No Alcohol: Occasional - Immunization History Hx Tetanus Toxoid Vaccination: No Hx Influenza Vaccination: No Hx Pneumococcal Vaccination: No - Home Medications Home Medications: Ambulatory Orders Medication Instructions Recorded Bupropion HCl [Wellbutrin] 1 tab PO DAILY 12/28/15 Topiramate [Topamax] 1 tab PO DAILY 12/28/15 clonazePAM [Klonopin] 1 tab PO DAILY 12/28/15 traZODone [Desyrel] 50 mg PO HS PRN #30 tab 10/26/17 Clotrimazole 1% Cream [Lotrimin 1%] 1 applic TOP BID #1 tube 11/07/17 - Allergies Allergies/Adverse Reactions: Allergies Allergy/AdvReac Type Severity Reaction Status Date / Time No Known Allergies Allergy Verified 11/07/17 22:21 Review of Systems ROS Statement: Except As Marked, All Systems Reviewed And Found Negative Constitutional: Negative for: Fever, Chills Psych: Negative for: Psychosis, Suicidal ideation, Withdrawal Physical Exam - Reviewed Nursing Documentation Reviewed: Yes Vital Signs Reviewed: Yes - Physical Exam Appears: Positive for: Well, Non-toxic, No Acute Distress Head Exam: Positive for: ATRAUMATIC, NORMAL INSPECTION, NORMOCEPHALIC Skin: Positive for: Normal Color, Warm, DRY Eye Exam: Positive for: Normal appearance ENT: Positive for: Normal ENT Inspection Neck: Positive for: Normal, Painless ROM Cardiovascular/Chest: Positive for: Regular Rate, Rhythm Respiratory: Positive for: Normal Breath Sounds. Negative for: Accessory Muscle Use, Respiratory Distress Back: Positive for: Normal Inspection Extremity: Positive for: Normal ROM Neurologic/Psych: Positive for: Alert, Oriented, Gait. Negative for: Aphasia, Facial Droop - ECG O2 Sat by Pulse Oximetry: 99 Pulse Ox Interpretation: Normal Medical Decision Making Medical Decision Making: Pt given cranberry juice in ER. Disposition - Clinical Impression Clinical Impression: Alcohol use - Patient ED Disposition Is Patient to be Admitted: No Counseled Patient/Family Regarding: Diagnosis, Need For Followup - Disposition Disposition: Routine/Home Disposition Time: 22:35 Condition: STABLE
== END 2017-11-07 22:30 | disposition home or self-care (01) ==
LOC: H.ER 22:18
DX: F10.10 Alcohol abuse, uncomplicated (principal); Z86.59 Personal history of other mental and behavioral disorders; J45.909 Unspecified asthma, uncomplicated; F43.10 Post-traumatic stress disorder, unspecified

== ENCOUNTER 2017-11-11 03:43 | Emergency (ER) | payer MEDICAID, OTHER ==
[2017-11-11 03:43] VITALS: BMI 25.3
[2017-11-11 03:56] VITALS: BP 155/85; PULSE 92; RESP 16; TEMP 98.1; O2SAT 99
--- NOTE | 2017-11-11 04:09 | ED PDOC ---
HPI: Psych/Substance Abuse Time Seen by Provider: 11/11/17 03:46 Chief Complaint (Nursing): Psychiatric Evaluation History Per: Patient History/Exam Limitations: no limitations Additional Complaint(s): Patient well known to ER brought for alcohol intoxication, was seen swimming in a pool intoxicated and told to leave, was in another ER tonight but left and requested to come here. Denies drug use. Past Medical History Reviewed: Historical Data, Nursing Documentation Vital Signs: Last Vital Signs Temp 98.1 F 11/11/17 03:51 Pulse 92 H 11/11/17 03:51 Resp 16 11/11/17 03:51 BP 155/85 H 11/11/17 03:51 Pulse Ox 99 11/11/17 03:51 - Medical History PMH: Anxiety, Asthma, Bipolar Disorder, Depression, Post Traumatic Stress Disorder, Schizophrenia Denies: Diabetes, Hepatitis, HIV, HTN, Chronic Kidney Disease, Seizures, Sexually Transmitted Disease - Family History Family History: States: Unknown Family Hx - Immunization History Hx Tetanus Toxoid Vaccination: No Hx Influenza Vaccination: No Hx Pneumococcal Vaccination: No - Home Medications Home Medications: Ambulatory Orders Medication Instructions Recorded Bupropion HCl [Wellbutrin] 1 tab PO DAILY 12/28/15 Topiramate [Topamax] 1 tab PO DAILY 12/28/15 clonazePAM [Klonopin] 1 tab PO DAILY 12/28/15 traZODone [Desyrel] 50 mg PO HS PRN #30 tab 10/26/17 - Allergies Allergies/Adverse Reactions: Allergies Allergy/AdvReac Type Severity Reaction Status Date / Time No Known Allergies Allergy Verified 11/11/17 03:51 Review of Systems ROS Statement: Except As Marked, All Systems Reviewed And Found Negative Physical Exam - Reviewed Nursing Documentation Reviewed: Yes Vital Signs Reviewed: Yes - Physical Exam Appears: Positive for: Well, Non-toxic, No Acute Distress Head Exam: Positive for: ATRAUMATIC, NORMAL INSPECTION, NORMOCEPHALIC Skin: Positive for: Normal Color, Warm, DRY Eye Exam: Positive for: EOMI, Normal appearance, PERRL ENT: Positive for: Normal ENT Inspection Neck: Positive for: Normal, Painless ROM Cardiovascular/Chest: Positive for: Regular Rate, Rhythm Respiratory: Positive for: CNT, Normal Breath Sounds Gastrointestinal/Abdominal: Positive for: Normal Exam, Soft Back: Positive for: Normal Inspection Extremity: Positive for: Normal ROM Neurologic/Psych: Positive for: Alert, Oriented - ECG O2 Sat by Pulse Oximetry: 99 Pulse Ox Interpretation: Normal Medical Decision Making Medical Decision MakinAM Patient well known to ER p/w alcohol intoxication, however patient is alert, awake, and steadily walking. Stable for discharge. Disposition - Clinical Impression Clinical Impression: Alcohol use - Disposition Referrals: Alcoholics Anonymous [Outside] Disposition: Routine/Home Disposition Time: 04:09 Condition: GOOD Instructions: Alcohol Use - When Is Drinking a Problem? Forms: [employer] (Senegalese)
== END 2017-11-11 04:32 | disposition home or self-care (01) ==
LOC: H.ER 03:43
DX: F10.129 Alcohol abuse with intoxication, unspecified (principal)

== ENCOUNTER 2017-11-12 06:54 | Emergency (ER) | payer OTHER ==
[2017-11-12 06:54] VITALS: BMI 25.3
[2017-11-12] MEDS ORDERED: Sodium Chloride 0.9% 1,000 ML IV STA (07:21)
--- NOTE | 2017-11-12 07:39 | ED PDOC ---
HPI: Psych/Substance Abuse Time Seen by Provider: 11/12/17 07:08 Chief Complaint (Nursing): Medical Clearance History Per: Patient (this 27 yo male presents to the ER with c/o leg cramps, which he states is a reaction to Geodon given to him while he was a patient at [facility] [place]. Patient is sleepy and is unable to give much information except that he has used alcohol and smoked in the past 24 hours.) Past Medical History Reviewed: Historical Data, Nursing Documentation, Vital Signs Vital Signs: Last Vital Signs Temp 98.2 F 11/12/17 07:02 Pulse 107 H 11/12/17 07:02 Resp 16 11/12/17 07:02 BP 131/85 11/12/17 07:02 Pulse Ox 98 11/12/17 07:02 - Medical History PMH: Anxiety, Asthma, Bipolar Disorder, Depression, Post Traumatic Stress Disorder, Schizophrenia Denies: Diabetes, Hepatitis, HIV, HTN, Chronic Kidney Disease, Seizures, Sexually Transmitted Disease - Family History Family History: States: Unknown Family Hx - Immunization History Hx Tetanus Toxoid Vaccination: No Hx Influenza Vaccination: No Hx Pneumococcal Vaccination: No - Home Medications Home Medications: Ambulatory Orders Medication Instructions Recorded Bupropion HCl [Wellbutrin] 1 tab PO DAILY 12/28/15 Topiramate [Topamax] 1 tab PO DAILY 12/28/15 clonazePAM [Klonopin] 1 tab PO DAILY 12/28/15 traZODone [Desyrel] 50 mg PO HS PRN #30 tab 10/26/17 - Allergies Allergies/Adverse Reactions: Allergies Allergy/AdvReac Type Severity Reaction Status Date / Time No Known Allergies Allergy Verified 11/11/17 03:51 Review of Systems Review Of Systems: ROS cannot be obtained secondary to pt's inabilty to answer questions. Physical Exam - Reviewed Nursing Documentation Reviewed: Yes Vital Signs Reviewed: Yes - Physical Exam Appears: Positive for: No Acute Distress Head Exam: Positive for: ATRAUMATIC, NORMAL INSPECTION, NORMOCEPHALIC Skin: Positive for: Normal Color (has red dye on his hands and scalp), Warm Eye Exam: Positive for: Normal appearance, EOMI, PERRL (pupils 2 mm bilaterally even in the dark and non-reactive.) ENT: Positive for: Normal ENT Inspection Neck: Positive for: Normal, Painless ROM, Supple. Negative for: Pain On Movement Of Neck Cardiovascular/Chest: Positive for: Regular Rate, Rhythm, Chest Non Tender Respiratory: Positive for: CNT, Normal Breath Sounds Gastrointestinal/Abdominal: Positive for: Normal Exam, Soft. Negative for: Tenderness, Distended, Guarding Back: Positive for: Normal Inspection Extremity: Positive for: Normal ROM Neurologic/Psych: Positive for: Oriented. Negative for: Alert (sedated by arouseable.), Motor/Sensory Deficits - Laboratory Results Result Diagrams: 11/12/17 07:52 11/12/17 07:52 - ECG O2 Sat by Pulse Oximetry: 98 Medical Decision Making Medical Decision Makin.30p - patient is now awake and alert. Will discharge. Disposition - Clinical Impression Clinical Impression: Substance abuse - Patient ED Disposition Is Patient to be Admitted: No Doctor Will See Patient In The: Office Counseled Patient/Family Regarding: Diagnosis, Need For Followup - Disposition Referrals: [facility] [Outside] [facility] [Outside] Disposition: Routine/Home Disposition Time: 13:15 Condition: IMPROVED Instructions: Polysubstance Abuse Forms: [facility] (Croatian) - POA Present On Arrival: None
[2017-11-12 08:07] LABS: BASO % 0.5 % (0.0-2.0); EOS # 0.1 K/uL (0.0-0.7); EOS % 1.5 % (0.0-4.0); HEMOGLOBIN 14.1 g/dL (12.0-18.0); LYMPH # 0.8 K/uL (1.0-4.3); LYMPH % 10.7 % (20.0-40.0); MEAN CELL VOLUME 93.1 fl (80.0-94.0); MEAN CORPUSCULAR HGB CONC 33.3 g/dL (33.0-37.0); MEAN PLATELET VOLUME 9.4 fl (7.2-11.7); MONO # 0.4 K/uL (0.0-0.8); MONO % 5.9 % (0.0-10.0); NEUT # 5.8 K/uL (1.8-7.0); NEUT % 81.4 % (50.0-75.0); RBC 4.53 Mil/uL (4.40-5.90); RED CELL DISTRIBUTION WIDTH 15.1 % (11.5-14.5); WHITE BLOOD COUNT 7.1 K/uL (4.8-10.8)
[2017-11-12 08:12] LABS: ALB/GLOB RATIO 1.3 (1.0-2.1); ALBUMIN 4.3 g/dL (3.5-5.0); ALT/SGPT 49 U/L (21-72); AST/SGOT 76 U/L (17-59); BLOOD UREA NITROGEN 13 mg/dl (9-20); CALCIUM 8.9 mg/dL (8.4-10.2); GFR AFRICAN-AMERICAN > 60; GFR NON-AFRICAN AMERICAN > 60
[2017-11-12 08:59] LABS: ACETAMINOPHEN < 10.0 ug/ml (10.0-30.0); SALICYLATE < 1.0 mg/dl
[2017-11-12 10:50] LABS: URINE BILIRUBIN NEGATIVE (NEGATIVE); URINE BLOOD NEGATIVE (NEGATIVE); URINE CLARITY SLIGHTY-CLOUDY (Clear); URINE COLOR YELLOW (YELLOW); URINE GLUCOSE (UA) NEG (Normal); URINE LEUKOCYTE ESTERASE NEG Leu/uL (Negative); URINE PROTEIN NEGATIVE (NEGATIVE); URINE UROBILINOGEN 0.2-1.0 mg/dL (0.2-1.0)
--- NOTE | 2017-11-12 11:16 | CARD ---
APPROVED REPORT EKG Measurement Heart [id number] <Conclusion> Normal sinus rhythm Normal ECG
[2017-11-12 11:19] LABS: BARBITURATES, UR NEGATIVE (NEGATIVE); BENZODIAZEPINES, UR POSITIVE (NEGATIVE); OPIATES, UR NEGATIVE (NEGATIVE); PHENCYCLIDINE, UR NEGATIVE (NEGATIVE)
[2017-11-12 14:06] VITALS: BP 125/80; PULSE 75; RESP 16; TEMP 97.9; O2SAT 99
== END 2017-11-12 14:07 | disposition home or self-care (01) ==
LOC: H.ER 06:54
DX: F19.10 Other psychoactive substance abuse, uncomplicated (principal); F20.9 Schizophrenia, unspecified; F31.9 Bipolar disorder, unspecified; F43.10 Post-traumatic stress disorder, unspecified; J45.909 Unspecified asthma, uncomplicated
CPT/HCPCS: 80053; 80320; 80324; 80329; 80345; 80346; 80349; 80353; 80358; 80361; 81003; 82948; 83992; 85025; 93005; 96360; 99285; J7040

== ENCOUNTER 2017-11-12 15:21 | Emergency (ER) | payer OTHER ==
[2017-11-12 15:21] VITALS: BMI 25.3
[2017-11-12 15:25] VITALS: BP 134/82; PULSE 93; TEMP 98.7; O2SAT 97
[2017-11-12 15:28] VITALS: RESP 20
--- NOTE | 2017-11-12 15:40 | ED PDOC ---
HPI: General Adult Time Seen by Provider: 11/12/17 15:30 Chief Complaint (Nursing): Lower Extremity Problem/Injury Chief Complaint (Provider): leg cramps History Per: Patient, EMS Additional Complaint(s): 27 year old male well known to ED presents via ambulance for cramping pain in legs. Patient was seen at 7:30 am today and has labs and urine tests completed all of which were normal. Patient states he was seen yesterday at [facility] and was geodon which he states causes an adverse reaction. Patient denies suicidal or homicidal ideation. PMD: none Past Medical History Reviewed: Historical Data, Nursing Documentation, Vital Signs Vital Signs: Last Vital Signs Temp 98.7 F 11/12/17 15:26 Pulse 93 H 11/12/17 15:26 Resp 20 11/12/17 15:26 BP 134/82 11/12/17 15:26 Pulse Ox 97 11/12/17 15:45 - Medical History PMH: Anxiety, Asthma, Bipolar Disorder, Depression, Post Traumatic Stress Disorder, Schizophrenia - Family History Family History: States: No Known Family Hx - Living Arrangements Living Arrangements: Other (non domiciled) - Social History Current smoker - smoking cessation education provided: No Alcohol: None Drugs: Denies - Immunization History Hx Tetanus Toxoid Vaccination: No Hx Influenza Vaccination: No Hx Pneumococcal Vaccination: No - Home Medications Home Medications: Ambulatory Orders Medication Instructions Recorded Bupropion HCl [Wellbutrin] 1 tab PO DAILY 12/28/15 Topiramate [Topamax] 1 tab PO DAILY 12/28/15 clonazePAM [Klonopin] 1 tab PO DAILY 12/28/15 traZODone [Desyrel] 50 mg PO HS PRN #30 tab 10/26/17 - Allergies Allergies/Adverse Reactions: Allergies Allergy/AdvReac Type Severity Reaction Status Date / Time ziprasidone [From [place]] Allergy FATIGUE Verified 11/12/17 15:26 Review of Systems ROS Statement: Except As Marked, All Systems Reviewed And Found Negative Musculoskeletal: Positive for: Leg Pain Psych: Negative for: Suicidal ideation Physical Exam - Reviewed Nursing Documentation Reviewed: Yes Vital Signs Reviewed: Yes - Physical Exam Appears: Positive for: Well, Non-toxic, No Acute Distress Skin: Negative for: Rash Eye Exam: Positive for: Normal appearance Cardiovascular/Chest: Positive for: Regular Rate, Rhythm Respiratory: Positive for: Normal Breath Sounds Gastrointestinal/Abdominal: Positive for: Soft. Negative for: Tenderness, Distended, Guarding, Rebound Extremity: Positive for: Normal ROM Neurologic/Psych: Positive for: Alert, Oriented - ECG O2 Sat by Pulse Oximetry: 97 Pulse Ox Interpretation: Normal Medical Decision Making Medical Decision Makin:40 27 year old male with leg cramps. Patient was seen at 7:30 am this morning at which time labs and urine were obtained, all of which were normal. Plan: ED observation 18:30 - patient is awake and alert, has steady gait, stable for discharge. Disposition - Clinical Impression Clinical Impression: Adverse reaction to drug - Patient ED Disposition Is Patient to be Admitted: No Counseled Patient/Family Regarding: Need For Followup - Disposition Referrals: [facility] [Outside] Disposition: Routine/Home Disposition Time: 18:30 Condition: STABLE Instructions: Adverse Drug Reactions, Adult (DC) Forms: [employer] (French)
== END 2017-11-12 19:07 | disposition home or self-care (01) ==
LOC: H.ER 15:21
DX: T88.7XXA Unspecified adverse effect of drug or medicament, initial encounter (principal); F20.9 Schizophrenia, unspecified; F31.9 Bipolar disorder, unspecified; F43.10 Post-traumatic stress disorder, unspecified; J45.909 Unspecified asthma, uncomplicated

== ENCOUNTER 2017-11-14 14:13 | Emergency (ER) | payer OTHER ==
[2017-11-14 14:14] VITALS: BMI 25.3
[2017-11-14 14:17] VITALS: BP 134/87; PULSE 84; RESP 16; TEMP 98.1; O2SAT 99
--- NOTE | 2017-11-14 14:42 | ED PDOC ---
HPI: General Adult Time Seen by Provider: 11/14/17 14:40 Chief Complaint (Nursing): Medical Clearance Chief Complaint (Provider): medical clearance History Per: Patient (27 y/o male here with police for medical clearance for incarceration. Denies any complaints. Has been drinking etoh. Was arrested b/ c he was drinking in common area of building and violated court order.) Past Medical History Reviewed: Historical Data, Nursing Documentation, Vital Signs Vital Signs: Last Vital Signs Temp 98.1 F 11/14/17 14:14 Pulse 84 11/14/17 14:14 Resp 16 11/14/17 14:14 BP 134/87 11/14/17 14:14 Pulse Ox 99 11/14/17 14:14 - Medical History PMH: Anxiety, Asthma, Bipolar Disorder, Depression, Post Traumatic Stress Disorder, Schizophrenia Denies: Diabetes, Hepatitis, HIV, HTN, Chronic Kidney Disease, Seizures, Sexually Transmitted Disease - Family History Family History: States: Unknown Family Hx - Immunization History Hx Tetanus Toxoid Vaccination: No Hx Influenza Vaccination: No Hx Pneumococcal Vaccination: No - Home Medications Home Medications: Ambulatory Orders Medication Instructions Recorded Bupropion HCl [Wellbutrin] 1 tab PO DAILY 12/28/15 Topiramate [Topamax] 1 tab PO DAILY 12/28/15 clonazePAM [Klonopin] 1 tab PO DAILY 12/28/15 traZODone [Desyrel] 50 mg PO HS PRN #30 tab 10/26/17 - Allergies Allergies/Adverse Reactions: Allergies Allergy/AdvReac Type Severity Reaction Status Date / Time ziprasidone [From Geodon] Allergy FATIGUE Verified 11/12/17 15:26 Review of Systems ROS Statement: Except As Marked, All Systems Reviewed And Found Negative Physical Exam - Reviewed Nursing Documentation Reviewed: Yes Vital Signs Reviewed: Yes - Physical Exam Appears: Positive for: Well, Non-toxic, No Acute Distress Head Exam: Positive for: ATRAUMATIC, NORMAL INSPECTION, NORMOCEPHALIC Skin: Positive for: Normal Color, Warm, DRY Eye Exam: Positive for: EOMI, Normal appearance, PERRL ENT: Positive for: Normal ENT Inspection Neck: Positive for: Normal, Painless ROM Cardiovascular/Chest: Positive for: Regular Rate, Rhythm Respiratory: Positive for: CNT, Normal Breath Sounds Gastrointestinal/Abdominal: Positive for: Normal Exam, Soft Back: Positive for: Normal Inspection Extremity: Positive for: Normal ROM Neurologic/Psych: Positive for: Alert, Oriented - ECG O2 Sat by Pulse Oximetry: 99 - Progress ED Course And Treament: Patient comfortable in ED. Patient requests sandwich to eat. Disposition - Clinical Impression Clinical Impression: Alcohol intoxication - Patient ED Disposition Is Patient to be Admitted: No - Disposition Disposition: Routine/Home Disposition Time: 14:41 Condition: FAIR Additional Instructions: PATIENT IS MEDICALLY AND PSYCHIATRICALLY CLEARED FOR INCARCERATION. Instructions: General (DC), Alcohol Abuse and Alcoholism (DC)
== END 2017-11-14 15:10 ==
LOC: H.ER 14:13
DX: F10.129 Alcohol abuse with intoxication, unspecified (principal); F20.9 Schizophrenia, unspecified; F31.9 Bipolar disorder, unspecified; F43.10 Post-traumatic stress disorder, unspecified; J45.909 Unspecified asthma, uncomplicated

== ENCOUNTER 2017-11-16 08:41 | Emergency (ER) | payer OTHER ==
[2017-11-16 08:46] VITALS: TEMP 98
[2017-11-16 08:47] VITALS: BMI 25.0
[2017-11-16 10:04] LABS: SQUAMOUS EPITHIAL < 1 /hpf (0-5); URINE BILIRUBIN NEGATIVE (NEGATIVE); URINE BLOOD NEGATIVE (NEGATIVE); URINE CLARITY CLEAR (Clear); URINE COLOR YELLOW (YELLOW); URINE GLUCOSE (UA) NEG (Normal); URINE LEUKOCYTE ESTERASE NEG Leu/uL (Negative); URINE PROTEIN NEGATIVE (NEGATIVE); URINE UROBILINOGEN 0.2-1.0 mg/dL (0.2-1.0)
[2017-11-16 10:19] LABS: BASO % 0.4 % (0.0-2.0); EOS # 0.3 K/uL (0.0-0.7); EOS % 4.8 % (0.0-4.0); HEMOGLOBIN 13.4 g/dL (12.0-18.0); LYMPH # 0.9 K/uL (1.0-4.3); LYMPH % 17.5 % (20.0-40.0); MEAN CELL VOLUME 92.5 fl (80.0-94.0); MEAN CORPUSCULAR HEMOGLOBIN 31.1 pg (27.0-31.0); MEAN CORPUSCULAR HGB CONC 33.6 g/dL (33.0-37.0); MEAN PLATELET VOLUME 9.2 fl (7.2-11.7); MONO # 0.4 K/uL (0.0-0.8); MONO % 7.3 % (0.0-10.0); NEUT # 3.8 K/uL (1.8-7.0); NRBC % 0.1 % (0.0-0.0); RBC 4.32 Mil/uL (4.40-5.90); RED CELL DISTRIBUTION WIDTH 14.8 % (11.5-14.5); WHITE BLOOD COUNT 5.4 K/uL (4.8-10.8)
--- NOTE | 2017-11-16 10:19 | ED PDOC ---
HPI: Psych/Substance Abuse Time Seen by Provider: 11/16/17 09:00 Chief Complaint (Nursing): Psychiatric Evaluation Chief Complaint (Provider): Psychiatric Evaluation History Per: Patient History/Exam Limitations: no limitations Onset/Duration Of Symptoms: Mins (prior to arrival) Current Symptoms Are (Timing): Still Present Involuntary Hold By: Local Law Enforcement Additional Complaint(s): 27 year old male with a history of schizoaffective disorder, bipolar disorder, ADHD and asthma, presents to the ED complaining of homicidal ideation. He reports planning to sharpen knives to kill people. Patient is in involuntary hold by [place] police and needs to be medically and psychiatrically cleared for incarceration. PMD: none provided Past Medical History Reviewed: Historical Data, Nursing Documentation, Vital Signs Vital Signs: Last Vital Signs Temp 98 F 11/16/17 08:45 Pulse 106 H 11/16/17 08:45 Resp BP 151/102 H 11/16/17 08:45 Pulse Ox 99 11/16/17 08:45 - Medical History PMH: Anxiety, Asthma, Bipolar Disorder, Depression, Post Traumatic Stress Disorder, Schizophrenia Denies: Diabetes, Hepatitis, HIV, HTN, Chronic Kidney Disease, Seizures, Sexually Transmitted Disease - Surgical History Surgical History: No Surg Hx - Family History Family History: States: Unknown Family Hx - Social History Current smoker - smoking cessation education provided: Yes Alcohol: > 2 Drinks/Day Drugs: Cannabis, Other (ecstasy) - Immunization History Hx Tetanus Toxoid Vaccination: No Hx Influenza Vaccination: No Hx Pneumococcal Vaccination: No - Home Medications Home Medications: Ambulatory Orders Medication Instructions Recorded Bupropion HCl [Wellbutrin] 1 tab PO DAILY 12/28/15 Topiramate [Topamax] 1 tab PO DAILY 12/28/15 clonazePAM [Klonopin] 1 tab PO DAILY 12/28/15 traZODone [Desyrel] 50 mg PO HS PRN #30 tab 10/26/17 - Allergies Allergies/Adverse Reactions: Allergies Allergy/AdvReac Type Severity Reaction Status Date / Time ziprasidone [From [place]] Allergy FATIGUE Verified 11/12/17 15:26 Review of Systems ROS Statement: Except As Marked, All Systems Reviewed And Found Negative Psych: Positive for: Other (homicidal ideation with plan) Physical Exam - Reviewed Nursing Documentation Reviewed: Yes Vital Signs Reviewed: Yes - Physical Exam Appears: Positive for: No Acute Distress Head Exam: Positive for: ATRAUMATIC, NORMOCEPHALIC Skin: Positive for: Normal Color, Warm, Dry Eye Exam: Positive for: EOMI, Normal appearance, PERRL Cardiovascular/Chest: Positive for: Regular Rate, Rhythm. Negative for: Murmur Respiratory: Positive for: Normal Breath Sounds. Negative for: Respiratory Distress Gastrointestinal/Abdominal: Positive for: Normal Exam, Soft Neurologic/Psych: Positive for: Alert, Oriented - Laboratory Results Result Diagrams: 11/16/17 10:05 11/16/17 10:05 - ECG O2 Sat by Pulse Oximetry: 99 (RA) Pulse Ox Interpretation: Normal Medical Decision Making Medical Decision Making: Time: 09:17 Impression: Medical and psychiatric clearance Initial Plan: --Acetaminophen --Alcohol serum --BMP --Urine drug --Salicylate --CBC with differentials --Urine C&S --Urinalysis ____ pt medically cleared for psychiatric evaluation. Time: 1253 Patient is cleared by Dr. Pierre, [facility] for discharge to police custody. Scribe Attestation: Documented by Kelly Roper, acting as a scribe for Peter Phipps MD Provider Scribe Attestation: All medical record entries made by the Scribe were at my direction and personally dictated by me. I have reviewed the chart and agree that the record accurately reflects my personal performance of the history, physical exam, medical decision making, and the department course for this patient. I have also personally directed, reviewed, and agree with the discharge instructions and disposition. Disposition - Clinical Impression Clinical Impression: Schizophrenia - Patient ED Disposition Is Patient to be Admitted: No - Disposition Disposition: Discharged/Transfer to Law Enforcement Disposition Time: 11:00 Condition: STABLE Additional Instructions: you are medically and psychiatrically cleared for incarceration follow up with your primary doctor return to the ED with any worsening or concerning symptoms Instructions: Schizophrenia Forms: [employer] (Mongolian)
[2017-11-16 10:20] LABS: BARBITURATES, UR NEGATIVE (NEGATIVE); BENZODIAZEPINES, UR NEGATIVE (NEGATIVE); OPIATES, UR NEGATIVE (NEGATIVE); PHENCYCLIDINE, UR NEGATIVE (NEGATIVE)
[2017-11-16 10:39] LABS: BLOOD UREA NITROGEN 13 mg/dl (9-20); GFR AFRICAN-AMERICAN > 60; GFR NON-AFRICAN AMERICAN > 60
[2017-11-16 10:40] LABS: ACETAMINOPHEN < 10.0 ug/ml (10.0-30.0); SALICYLATE < 1.0 mg/dl
[2017-11-16 13:03] VITALS: BP 142/73; PULSE 100; RESP 18
[2017-11-17 09:04] VITALS: O2SAT 99
== END 2017-11-16 13:20 ==
LOC: H.ER 08:41
DX: F25.9 Schizoaffective disorder, unspecified (principal); F31.9 Bipolar disorder, unspecified; F17.200 Nicotine dependence, unspecified, uncomplicated; F43.10 Post-traumatic stress disorder, unspecified; F90.9 Attention-deficit hyperactivity disorder, unspecified type; J45.909 Unspecified asthma, uncomplicated

== ENCOUNTER 2018-09-02 17:46 | Emergency (ER) | payer MEDICAID ==
[2018-09-02 17:46] VITALS: BMI 25.0
[2018-09-02 17:53] VITALS: BP 125/82; PULSE 90; RESP 18; TEMP 98.3; O2SAT 100
--- NOTE | 2018-09-02 18:31 | ED PDOC ---
HPI: Psych/Substance Abuse Time Seen by Provider: 09/02/18 18:05 Chief Complaint (Nursing): Alcohol Ingestion Chief Complaint (Provider): Alcohol Ingestion History Per: Patient, EMS History/Exam Limitations: no limitations Onset/Duration Of Symptoms: Mins (just prior to arrival) Additional Complaint(s): 28 year old male presents to the ED via EMS after reportedly trying to get into his old apartment building despite not residing there anymore. Patient admits to drinking alcohol earlier today, but currently his speech is clear, gait steady, and he denies any SI/HI, trauma, or injury. He additionally states that he is homeless as public records show he has recently been released from skilled nursing. PMD: none provided Past Medical History Reviewed: Historical Data, Nursing Documentation, Vital Signs Vital Signs: Last Vital Signs Temp 98.3 F 09/02/18 17:50 Pulse 90 09/02/18 17:50 Resp 18 09/02/18 17:50 BP 125/82 09/02/18 17:50 Pulse Ox 100 09/02/18 17:50 - Medical History PMH: Anxiety, Asthma, Bipolar Disorder, Depression, Post Traumatic Stress Disorder, Schizophrenia Denies: Diabetes, Hepatitis, HIV, HTN, Chronic Kidney Disease, Seizures, Sexually Transmitted Disease - Surgical History Surgical History: No Surg Hx - Family History Family History: States: Unknown Family Hx - Living Arrangements Living Arrangements: Other (homeless) - Social History Alcohol: Social - Immunization History Hx Tetanus Toxoid Vaccination: No Hx Influenza Vaccination: No Hx Pneumococcal Vaccination: No - Home Medications Home Medications: Ambulatory Orders Medication Instructions Recorded Bupropion HCl [Wellbutrin] 1 tab PO DAILY 12/28/15 Topiramate [Topamax] 1 tab PO DAILY 12/28/15 clonazePAM [Klonopin] 1 tab PO DAILY 12/28/15 traZODone [Desyrel] 50 mg PO HS PRN #30 tab 10/26/17 - Allergies Allergies/Adverse Reactions: Allergies Allergy/AdvReac Type Severity Reaction Status Date / Time ziprasidone [From [place]] Allergy FATIGUE Verified 09/02/18 17:49 Review of Systems ROS Statement: Except As Marked, All Systems Reviewed And Found Negative Psych: Negative for: Suicidal ideation (or homicidal ideation) Physical Exam - Reviewed Nursing Documentation Reviewed: Yes Vital Signs Reviewed: Yes - Physical Exam Appears: Positive for: No Acute Distress Head Exam: Positive for: ATRAUMATIC, NORMOCEPHALIC Skin: Positive for: Normal Color, Warm, DRY Eye Exam: Positive for: EOMI, Normal appearance, PERRL ENT: Positive for: Normal ENT Inspection Neck: Positive for: Normal, Painless ROM Cardiovascular/Chest: Positive for: Regular Rate, Rhythm Respiratory: Positive for: Normal Breath Sounds. Negative for: Respiratory Distress Gastrointestinal/Abdominal: Positive for: Normal Exam, Soft. Negative for: Tenderness Back: Positive for: Normal Inspection Extremity: Positive for: Normal ROM (all extremities) Neurologic/Psych: Positive for: Alert, Oriented (x3), Gait (steady, unassisted), Other (speech slightly pressured but conversant and non-paranoid; insight fair, judgement is poor). Negative for: Motor/Sensory Deficits (coordination and strength intact) - ECG O2 Sat by Pulse Oximetry: 100 (RA) Pulse Ox Interpretation: Normal Medical Decision Making Medical Decision Making: Time: 1829 Initial Impression: alcohol use Initial Plan: --Patient was monitored in ED for 45 minutes and remained awake, alert, and cooperative. Will discharge, despite offering to let him stay for a longer time due to frigid temperatures outside because he states "I will find a place to go." Scribe Attestation: Documented by Rosalee Miramontes acting as a scribe for Naresh Coyne III, DO. Provider Scribe Attestation: All medical record entries made by the Scribe were at my direction and personally dictated by me. I have reviewed the chart and agree that the record accurately reflects my personal performance of the history, physical exam, medical decision making, and the department course for this patient. I have also personally directed, reviewed, and agree with the discharge instructions and disposition. Disposition - Clinical Impression Clinical Impression: Alcohol use - Disposition Referrals: Alcoholics Anonymous [Outside] [facility] [Outside] Disposition Time: 18:30 Condition: STABLE Additional Instructions: Avoid alcohol in large quantities. Instructions: Alcohol Use - When Is Drinking a Problem? Forms: [employer] ([email or web address]) (Welsh)
== END 2018-09-02 18:40 | disposition home or self-care (01) ==
LOC: H.ER 17:46
DX: F10.10 Alcohol abuse, uncomplicated (principal); Z86.59 Personal history of other mental and behavioral disorders; F43.10 Post-traumatic stress disorder, unspecified; J45.909 Unspecified asthma, uncomplicated; Z59.0 Homelessness